=== PATIENT | female | born 1965 ===

== ENCOUNTER 2016-10-17 10:47 | Day surgery (SDC) | payer OTHER ==
[2016-10-17] MEDS ORDERED: Lactated Ringer's 500 ML IV ONE (11:42)
[2016-10-17 11:46] VITALS: TEMP 97.8
[2016-10-17 12:31] VITALS: O2SAT 99
[2016-10-17 12:51] VITALS: BP 104/72
[2016-10-17 12:52] VITALS: PULSE 64; RESP 13
== END 2016-10-17 13:02 | disposition home or self-care (01) ==
LOC: C.ENDO 10:47
PROVIDERS: ATTEND Internal Medicine Gastroenterology
DX: K29.50 Unspecified chronic gastritis without bleeding (principal)
CPT/HCPCS: 43239; 88305; J7120

== ENCOUNTER 2016-11-30 10:57 | Inpatient (IN) | payer OTHER ==
[2016-11-30] MEDS ORDERED: Sodium Chloride 0.9% 1,000 ML IV ONE ×3 (11:17→14:04)
[2016-11-30] MEDS ORDERED: Sodium Chloride 0.9% 1,000 ML ONE ×3 (11:25→14:12)
[2016-11-30 11:30] LABS: BASO % 0.5 % (0.0-2.0); EOS # 0.1 K/uL (0.0-0.7); EOS % 1.2 % (0.0-4.0); HEMATOCRIT 33.9 % (34.0-47.0); LYMPH # 0.9 K/uL (1.0-4.3); LYMPH % 9.8 % (20.0-40.0); MEAN CELL VOLUME 96.7 fL (81.0-99.0); MEAN CORPUSCULAR HEMOGLOBIN 33.9 pg (27.0-31.0); MEAN PLATELET VOLUME 6.8 fL (7.2-11.7); MONO # 0.6 K/uL (0.0-0.8); MONO % 6.2 % (0.0-10.0); PLATELET COUNT 254 K/uL (130-400); RED CELL DISTRIBUTION WIDTH 12.8 % (11.5-14.5); WHITE BLOOD COUNT 9.1 K/uL (4.8-10.8)
[2016-11-30 11:36] LABS: POTASSIUM 3.7 mmol/L (3.6-5.2)
--- NOTE | 2016-11-30 11:37 | C.PDOC ---
History Of Present Illness 51 y/o female, with PMHx of HTN and hypercholesterolemia, presents to ED with complaints of nausea, vomiting, and diarrhea for 3 days. Patient reports multiple episodes of vomiting and diarrhea over the last few days. Notes she follows up at the clinic with Dr. Luciano. Otherwise, denies fever, chills, chest pain, SOB, urinary symptoms, or other associated symptoms. Time Seen by Provider: 11/30/16 11:11 Chief Complaint (Nursing): Abdominal Pain History Per: Patient History/Exam Limitations: no limitations Onset/Duration Of Symptoms: Days Current Symptoms Are (Timing): Still Present Location Of Pain/Discomfort: Diffuse Quality Of Discomfort: "Pain" Associated Symptoms: Nausea, Vomiting, Diarrhea. denies: Fever, Chills, Back Pain, Chest Pain, Urinary Symptoms Recent travel outside of the [place]: No Past Medical History Reviewed: Historical Data, Nursing Documentation, Vital Signs Vital Signs: Last Vital Signs Temp 98.5 F 11/30/16 16:42 Pulse 86 11/30/16 16:42 Resp 20 11/30/16 16:42 BP 114/76 11/30/16 16:42 Pulse Ox 97 11/30/16 16:42 - Medical History PMH: Anxiety, Asthma, Depression, Diabetes, HTN, Hypercholesterolemia - [facility] Procedures CLOSURE SKIN & SUBCUTANEOUS NEC (12/13/13) CRUCIATE LIG REPAIR NEC (07/18/13) ENDOSCOPIC BIOPSY OF RECTUM (05/15/13) EXCIS KNEE SEMILUN CARTL (07/18/13) KNEE SYNOVECTOMY (07/18/13) Family History: States: Stroke - Social History Hx Tobacco Use: Yes Hx Alcohol Use: Yes Hx Substance Use: No - Immunization History Hx Tetanus Toxoid Vaccination: Yes (YESTERDAY) Hx Influenza Vaccination: No Hx Pneumococcal Vaccination: No Review Of Systems Except As Marked, All Systems Reviewed And Found Negative. Constitutional: Negative for: Fever, Chills Cardiovascular: Negative for: Chest Pain Respiratory: Negative for: Cough, Wheezing Gastrointestinal: Positive for: Nausea, Vomiting, Abdominal Pain, Diarrhea. Negative for: Constipation Genitourinary: Negative for: Dysuria, Hematuria Skin: Negative for: Rash Neurological: Negative for: Headache, Dizziness Physical Exam - Physical Exam Appears: Non-toxic, No Acute Distress Skin: Normal Color, Warm, Dry Head: Atraumatic, Normacephalic Oral Mucosa: Dry Chest: Symmetrical Cardiovascular: Rhythm Regular Respiratory: Normal Breath Sounds, No Rales, No Rhonchi, No Wheezing Gastrointestinal/Abdominal: Soft, Tenderness (diffuse), No Guarding, No Rebound Back: Normal Inspection, No CVA Tenderness Extremity: Normal ROM, Capillary Refill (< 2 sec. ) Neurological/Psych: Oriented x3, Normal Speech, Normal Cognition ED Course And Treatment - Laboratory Results Result Diagrams: 11/30/16 11:24 11/30/16 11:24 Lab Interpretation: Abnormal O2 Sat by Pulse Oximetry: 98 (RA) Pulse Ox Interpretation: Normal - CT Scan/US No standard instances Other Rad Studies (CT/US): Read By Radiologist, Radiology Report Reviewed CT/US Interpretation: FINDINGS: There is limited evaluation of the solid organs without the administration of IV contrast. LOWER THORAX: No visible consolidation, pleural effusion, or pneumothorax. LIVER: Mild hepatomegaly. GALLBLADDER AND BILE DUCTS: Unremarkable unenhanced appearance. PANCREAS: Unremarkable unenhanced appearance. SPLEEN: Unremarkable unenhanced appearance. ADRENALS: Unremarkable unenhanced appearance. KIDNEYS AND URETERS : No hydronephrosis or obstructing renal calculus. BLADDER: The urinary bladder appears unremarkable. REPRODUCTIVE: Uterus is absent, presumably due to hysterectomy. APPENDIX: No secondary signs of acute appendicitis. BOWEL: The stomach is nondistended. Lack of oral contrast limits evaluation for bowel pathology. The bowel loops appear within normal limits of caliber without evidence of intestinal obstruction. Colonic wall thickening involving the transverse and left colon; correlate clinically for colitis (i.e. E infectious, inflammatory, ischemic). PERITONEUM: No significant free fluid. No definite free air. LYMPH NODES: No bulky lymphadenopathy identified. VASCULATURE: No aortic aneurysm. BONES: Degenerative changes. OTHER FINDINGS: Small umbilical fat containing hernia. Right inguinal fat containing hernia. IMPRESSION: Colonic wall thickening involving the transverse and left colon; correlate clinically for colitis (i.e. E infectious, inflammatory, ischemic). Additional findings as above. Progress Note: Zofran, IVFs given. Labs, non-contrast CT scan ordered. Treated with additional NSS and morphine 4 mg IV. 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 - Scribe Statement The provider has reviewed the documentation as recorded by the Scribe Justin Simmons All medical record entries made by the Scribe were at my direction and personally dictated by me. I have reviewed the chart and agree that the record accurately reflects my personal performance of the history, physical exam, medical decision making, and the department course for this patient. I have also personally directed, reviewed, and agree with the discharge instructions and disposition. Decision To Admit - Pt Status Changed To: Hospital Disposition Of: Inpatient - Admit Certification Admit to Inpatient:: After my assessment, the patient will require hospitalization for at least two midnights. This is because of the severity of symptoms shown, intensity of services needed, and/or the medical risk in this patient being treated as an outpatient. - InPatient: Physician Admission Certification:: Abdominal Pain. Colitis - . Bed Request Type: Regular Admitting Physician: Gama Gamboa Patient Diagnosis: Abdominal pain, Diarrhea, Colitis
[2016-11-30 11:38] LABS: BILIRUBIN,TOTAL 0.9 mg/dL (0.2-1.3)
[2016-11-30 11:39] LABS: ALB/GLOB RATIO 1.1 (1.0-2.1); CALCIUM 8.9 mg/dl (8.6-10.4); TOTAL PROTEIN 7.5 g/dL (6.3-8.3)
[2016-11-30 11:56] LABS: EOSINOPHIL 1 % (0-4); NEUTROPHIL 51 % (50-75); REACTIVE LYMPHOCYTES 1 % (0-0); TOTAL CELLS COUNTED 100
[2016-11-30 12:26] LABS: RBC URINE 2 /hpf (0-3); URINE BILIRUBIN NEGATIVE (NEGATIVE); URINE BLOOD NEGATIVE (NEGATIVE); URINE COLOR Amber (YELLOW); URINE GLUCOSE (UA) NORMAL (Normal); URINE KETONE NEGATIVE (NEGATIVE); URINE LEUKOCYTE ESTERASE NEG Leu/uL (Negative); URINE PROTEIN 2+ mg/dL (NEGATIVE); URINE UROBILINOGEN NORMAL mg/dL (0.2-1.0); WBC URINE 9 /hpf (0-5)
--- NOTE | 2016-11-30 13:53 | CT ---
PROCEDURE: CT Abdomen and Pelvis without Oral or IV contrast. HISTORY: Pain COMPARISON: Abdominal ultrasound performed 10/12/16, CT abdomen and pelvis with contrast performed 09/01/16 TECHNIQUE: Contiguous axial images of the abdomen and pelvis. No oral or IV contrast administered. Coronal and Sagittal reformats generated and reviewed. Radiation dose: Total exam DLP = 582.87 mGy-cm. This CT exam was performed using one or more of the following dose reduction techniques: Automated exposure control, adjustment of the mA and/or kV according to patient size, and/or use of iterative reconstruction technique. FINDINGS: There is limited evaluation of the solid organs without the administration of IV contrast. LOWER THORAX: No visible consolidation, pleural effusion, or pneumothorax. LIVER: Mild hepatomegaly. GALLBLADDER AND BILE DUCTS: Unremarkable unenhanced appearance. PANCREAS: Unremarkable unenhanced appearance. SPLEEN: Unremarkable unenhanced appearance. ADRENALS: Unremarkable unenhanced appearance. KIDNEYS AND URETERS: No hydronephrosis or obstructing renal calculus. BLADDER: The urinary bladder appears unremarkable. REPRODUCTIVE: Uterus is absent, presumably due to hysterectomy. APPENDIX: No secondary signs of acute appendicitis. BOWEL: The stomach is nondistended. Lack of oral contrast limits evaluation for bowel pathology. The bowel loops appear within normal limits of caliber without evidence of intestinal obstruction. Colonic wall thickening involving the transverse and left colon; correlate clinically for colitis (i.e. E infectious, inflammatory, ischemic). PERITONEUM: No significant free fluid. No definite free air. LYMPH NODES: No bulky lymphadenopathy identified. VASCULATURE: No aortic aneurysm. BONES: Degenerative changes. OTHER FINDINGS: Small umbilical fat containing hernia. Right inguinal fat containing hernia. IMPRESSION: Colonic wall thickening involving the transverse and left colon; correlate clinically for colitis (i.e. E infectious, inflammatory, ischemic). Additional findings as above.
[2016-11-30] MEDS ORDERED: Morphine 4 MG/ML VIAL ONE (14:12)
[2016-11-30] MEDS ORDERED: metroNIDAZOLE IV 500 mg/100 ml 500 MG/100 ML BAG ONE (15:23)
[2016-11-30] MEDS: metroNIDAZOLE IV 500 mg/100 ml 500 MG/100 ML BAG IVPB SCH ×2 (15:24→21:47)
--- NOTE | 2016-11-30 15:27 | CP.PCM.HP ---
<Raymon Mary - Last Filed: 11/30/16 15:23> History of Present Illness - History of Present Illness History of Present Illness: This is a 51 yo female with past medical hx of HTN and HLD and gastritis presenting with abd pain x 2 days. Started gradually 2 days ago after eating BBQ ribs and milk on . Never happened before. No sick contacts, recent travel to . Pain diffuse, squeezing sensation. Getting worse , 10/10. No vomiting, positive nausea. Reports "a lot" of diarrhea, non bloody. Pt is not menstruating any more. Reported fever of 102.7 yesterday. Took Gasx at home with no relief. PMH: HTN, HLD, gastritis PSH: hysterectomy, bunionectomy, knee sx, tubal ligation Allergies: NKDA Current home meds- lisinopril, HCTZ, norvasc, pepcid, gemfibrozil, simvastatin FH: Throat cancer, testicular, stomach, colon cancer all in family Social hx: Current smoker, 6-7 cigs/day. Social drinker, denies drug use. Present on Admission - Present on Admission Any Indicators Present on Admission: No History of DVT/PE: No History of Uncontrolled Diabetes: No Urinary Catheter: No Decubitus Ulcer Present: No Review of Systems - Review of Systems All systems: reviewed and no additional remarkable complaints except Review of Systems: Negative except for HPI. Past Patient History - Infectious Disease Hx of Infectious Diseases: None - Tetanus Immunizations Tetanus Immunization: Unknown - Past Medical History & Family History Past Medical History?: Yes Pertinent Family History: Throat, stomach, colon, testicular cancer - Past Social History Smoking Status: Light Smoker < 10 Cigarettes Daily Chewing Tobacco Use: No Cigar Use: No Alcohol: Social Drugs: Denies Home Situation {Lives}: With Family Domestic Violence: Negative - CARDIAC Hx Hypercholesterolemia: Yes Hx Hypertension: Yes - PULMONARY Hx Asthma: Yes - NEUROLOGICAL Hx Neurological Disorder: No - HEENT Hx HEENT Problems: Yes Other/Comment: SEASONAL ALLERGIES - RENAL Hx Chronic Kidney Disease: No - ENDOCRINE/METABOLIC Hx Endocrine Disorders: No - HEMATOLOGICAL/ONCOLOGICAL Hx Blood Disorders: No - INTEGUMENTARY Hx Dermatological Problems: No - MUSCULOSKELETAL/RHEUMATOLOGICAL Hx Musculoskeletal Disorders: Yes Hx Falls: No Hx Herniated Disk: Yes Other/Comment: TORN LT KNEE LIGAMENTS ACL & MCL - GASTROINTESTINAL Hx Gastrointestinal Disorders: Yes Hx Gastroesophageal Reflux: Yes - GENITOURINARY/GYNECOLOGICAL Hx Genitourinary Disorders: Yes Other/Comment: FIBROID UTERUS - PSYCHIATRIC Hx Anxiety: Yes Hx Depression: Yes Hx Substance Use: No - SURGICAL HISTORY Hx Surgeries: Yes Hx Arthroscopy: (KNEE ARTHROSCOPY WITH ACL & MCL REPAIR) Hx Hysterectomy: Yes Hx Orthopedic Surgery: Yes Other/Comment: BUNIONECTOMY, LT KNEE LIGAMENT REPLACED BY HUMAN CADAVER, ARTIFICIAL DISC C4 - ANESTHESIA Hx Anesthesia: Yes Hx Anesthesia Reactions: No Hx Malignant Hyperthermia: No Meds Allergies/Adverse Reactions: Allergies Allergy/AdvReac Type Severity Reaction Status Date / Time seasonal Allergy CONGESTION Uncoded 11/30/16 11:12 Physical Exam - Constitutional Appears: In Acute Distress - Head Exam Head Exam: ATRAUMATIC, NORMAL INSPECTION, NORMOCEPHALIC - Eye Exam Eye Exam: EOMI - ENT Exam ENT Exam: Mucous Membranes Dry - Neck Exam Neck exam: Positive for: Full Rom, Normal Inspection - Respiratory Exam Respiratory Exam: NORMAL BREATHING PATTERN. absent: Respiratory Distress - Cardiovascular Exam Cardiovascular Exam: +S1, +S2 - GI/Abdominal Exam GI & Abdominal Exam: Normal Bowel Sounds, Soft, Tenderness. absent: Guarding Additional comments: Moderate tenderness all 4 quadrants - Extremities Exam Extremities exam: Positive for: full ROM, normal inspection - Back Exam Back exam: NORMAL INSPECTION - Neurological Exam Neurological exam: Alert, CN II-XII Intact, Oriented x3 - Psychiatric Exam Psychiatric exam: Anxious, Normal Affect, Normal Mood - Skin Skin Exam: Dry, Intact, Normal Color, Warm Results - Vital Signs Recent Vital Signs: Last Vital Signs Temp 98.2 F 11/30/16 11:01 Pulse 114 H 11/30/16 11:01 Resp 18 11/30/16 11:01 BP 109/72 11/30/16 11:01 Pulse Ox 98 11/30/16 14:29 - Labs Result Diagrams: 11/30/16 11:24 11/30/16 11:24 Assessment & Plan - Assessment and Plan (Free Text) Assessment: This is a 51 yo female with past medical hx of HTN, HLD, gastritis presenting with abd pain x 2 days 1. Colitis -IVF 100 cc/hr -morphine IV PRN pain -NPO -cipro IV -flagyl IV -stool WBCs -stool c diff -stool culture -ova/parasites -stool electrolytes -blood cultures x 2 -zofran for nausea -will repeat ua 2. Hx of HTN -continue home lisinopril -hold hctz, norvasc 3. hx of HLD -will start crestor 5 mg PO HS 4. GI/DVT ppx -protonix 40 daily -SCDs discussed with Dr. Gamboa <Gama Gamboa - Last Filed: 12/01/16 07:57> Results - Vital Signs Recent Vital Signs: Last Vital Signs Temp 98.1 F 12/01/16 07:33 Pulse 77 12/01/16 07:33 Resp 20 12/01/16 07:33 BP 105/69 12/01/16 07:33 Pulse Ox 97 12/01/16 07:33 - Labs Result Diagrams: 12/01/16 07:15 12/01/16 07:15 Labs: Laboratory Results - last 24 hr 11/30/16 11/30/16 11/30/16 16:20 21:25 Unknown WBC RBC Hgb Hct MCV MCH MCHC RDW Plt Count MPV Neut % (Auto) Lymph % (Auto) [place] % (Auto) Eos % (Auto) Baso % (Auto) Neut # Lymph # [place] # Eos # Baso # Sodium Potassium Chloride Carbon Dioxide Anion Gap BUN Creatinine Est GFR ( Amer) Est GFR (Non-Af Amer) POC Glucose (mg/dL) 101 97 Random Glucose Calcium Phosphorus Magnesium Total Bilirubin AST ALT Alkaline Phosphatase Total Protein Albumin Globulin Albumin/Globulin Ratio Stool Leukocytes, Qual C. difficile Ag & Toxin Negative 11/30/16 12/01/16 12/01/16 Unknown 07:15 07:15 WBC 4.4 L D RBC 2.80 L Hgb 9.5 L D Hct 27.1 L MCV 96.6 MCH 34.0 H MCHC 35.2 RDW 12.8 Plt Count 204 MPV 6.9 L Neut % (Auto) 61.0 Lymph % (Auto) 21.1 [place] % (Auto) 12.5 H Eos % (Auto) 4.7 H Baso % (Auto) 0.7 Neut # 2.7 Lymph # 0.9 L [place] # 0.5 Eos # 0.2 Baso # 0.0 Sodium 136 Potassium 3.6 Chloride 103 Carbon Dioxide 24 Anion Gap 13 BUN 13 Creatinine 0.9 Est GFR ( Amer) > 60 Est GFR (Non-Af Amer) > 60 POC Glucose (mg/dL) Random Glucose 82 Calcium 8.1 L Phosphorus 3.5 Magnesium 1.4 L Total Bilirubin 0.7 AST 27 ALT 20 Alkaline Phosphatase 58 Total Protein 6.0 L Albumin 3.0 L D Globulin 3.0 Albumin/Globulin Ratio 1.0 Stool Leukocytes, Qual Positive H C. difficile Ag & Toxin Attending/Attestation - Attestation I have personally seen and examined this patient.: Yes I have fully participated in the care of the patient.: Yes I have reviewed all pertinent clinical information: Yes Notes (Text): 12/01/16 07:53 Medical attending: Patient was seen and examined by me, agrees the above note by bio medical technician. The patient had completed CT imaging which suggested that she may have colitis. She explains that she recently felt sick after eating a meal on . She tells us that she's been having a lot of vomiting and diarrhea, also we reviewed some old notes she did have the EGD just recently the pathology reports are negative for any acute findings. At this time to start IV Cipro and IV Flagyl as well as intravenous fluids the patient will be nothing by mouth for the time being will see how she still tomorrow if we can advance her diet to clear liquid diet. [place] check additional cultures such as blood, stools, O&P, C. difficile however this appears to be unlikely as she hasn't taken any biotics before Thank you very much, Gama Gamboa
[2016-11-30 16:43] VITALS: RESP 20
[2016-11-30] MEDS: Sodium Chloride 0.9% 1,000 ML IV SCH (16:50)
[2016-11-30] MEDS: Ciprofloxacin 400mg/200ml D5W 400 MG/200 ML BAG IVPB SCH (17:31)
[2016-12-01] MEDS: Sodium Chloride 0.9% 1,000 ML IV SCH ×4 (01:30→21:57)
[2016-12-01] MEDS: Ciprofloxacin 400mg/200ml D5W 400 MG/200 ML BAG IVPB SCH ×2 (03:10→15:24)
[2016-12-01] MEDS: metroNIDAZOLE IV 500 mg/100 ml 500 MG/100 ML BAG IVPB SCH ×3 (05:30→21:57)
[2016-12-01 07:32] LABS: BASO % 0.7 % (0.0-2.0); EOS # 0.2 K/uL (0.0-0.7); EOS % 4.7 % (0.0-4.0); HEMATOCRIT 27.1 % (34.0-47.0); LYMPH # 0.9 K/uL (1.0-4.3); LYMPH % 21.1 % (20.0-40.0); MEAN CELL VOLUME 96.6 fL (81.0-99.0); MEAN CORPUSCULAR HGB CONC 35.2 g/dL (33.0-37.0); MEAN PLATELET VOLUME 6.9 fL (7.2-11.7); MONO # 0.5 K/uL (0.0-0.8); MONO % 12.5 % (0.0-10.0); RED CELL DISTRIBUTION WIDTH 12.8 % (11.5-14.5)
[2016-12-01 07:35] LABS: CHLORIDE 103 mmol/L (98-107)
[2016-12-01 07:36] LABS: POTASSIUM 3.6 mmol/L (3.6-5.2); SODIUM 136 mmol/L (132-148)
[2016-12-01 07:38] LABS: ALKALINE PHOSPHATASE 58 U/L (38-126); ALT/SGPT 20 U/L (9-52); AST/SGOT 27 U/L (14-36); BILIRUBIN,TOTAL 0.7 mg/dL (0.2-1.3); BLOOD UREA NITROGEN 13 mg/dL (7-17); CARBON DIOXIDE 24 mmol/L (22-30); GFR AFRICAN-AMERICAN > 60; GLUCOSE,RANDOM 82 mg/dL (65-105)
[2016-12-01 07:39] LABS: CALCIUM 8.1 mg/dl (8.6-10.4); MAGNESIUM 1.4 mg/dL (1.6-2.3); PHOSPHOROUS 3.5 mg/dL (2.5-4.5)
[2016-12-01 07:47] LABS: WHITE BLOOD COUNT 4.4 K/uL (4.8-10.8)
[2016-12-01] MEDS: Magnesium Sulfate 1 gm in D5W 1 GM/100 ML BAG IVPB SCH ×2 (11:01→12:19)
--- NOTE | 2016-12-01 11:37 | CP.PCM.PN ---
<Raymon Mary - Last Filed: 12/01/16 11:37> Subjective - Date & Time of Evaluation Date of Evaluation: 12/01/16 Time of Evaluation: 11:35 - Subjective Subjective: Med progress note. Attending: Dr. Gamboa Pt seen and examined at bedside. No acute distress, but pt is in some pain. No events overnight. Pt still having a good amt of diarrhea, non bloody. Sx consult pending. Denies fevers, chills, vomiting, cp, sob. Objective - Vital Signs/Intake and Output Vital Signs (last 24 hours): Temp Pulse Resp BP Pulse Ox 98.1 F 77 20 105/69 97 12/01/16 07:33 12/01/16 07:33 12/01/16 07:33 12/01/16 07:33 12/01/16 07:33 Intake and Output: 12/01/16 12/01/16 06:59 18:59 Intake Total 1620 Balance 1620 - Medications Medications: Current Medications Enoxaparin Sodium (Lovenox) 40 mg SC [facility]ILY [facility] Gemfibrozil (Lopid) 600 mg PO BIDBS [facility] Last Admin: 12/01/16 08:30 Dose: 600 mg Hydromorphone HCl (Dilaudid) 1 mg IVP Q4H PRN PRN Reason: Pain, severe (8-10) Ciprofloxacin (Cipro 400mg/200ml Dsw) 400 mg in 200 mls @ 133 mls/hr IVPB Q12H [facility] Last Admin: 12/01/16 03:10 Dose: 133 mls/hr Metronidazole (Flagyl) 500 mg in 100 mls @ 100 mls/hr IVPB Q8 [facility] Last Admin: 12/01/16 05:30 Dose: 100 mls/hr Sodium Chloride (Sodium Chloride 0.9%) 1,000 mls @ 100 mls/hr IV .Q10H [facility] Last Admin: 12/01/16 08:29 Dose: 100 mls/hr Magnesium Sulfate/Dextrose (Magnesium Sulfate 1 Gm/100 Ml D5w) 1 gm in 100 mls @ 100 mls/hr IVPB Q1H [facility] Stop: 12/01/16 11:59 Last Admin: 12/01/16 11:01 Dose: 100 mls/hr Lisinopril (Zestril) 40 mg PO DAILY [facility] Last Admin: 12/01/16 11:06 Dose: Not Given Morphine Sulfate (Morphine) 2 mg IVP Q4 PRN PRN Reason: Pain, moderate (4-7) Last Admin: 12/01/16 08:34 Dose: 2 mg Ondansetron HCl (Zofran Inj) 4 mg IVP Q6 PRN PRN Reason: NAUSEA/VOMITING Pantoprazole Sodium (Protonix Inj) 40 mg IVP DAILY [facility] Last Admin: 12/01/16 11:04 Dose: 40 mg Pneumococcal Polyvalent Vaccine (Pneumovax 23 Vaccine) 0.5 ml IM .ONCE ONE Stop: 12/02/16 10:01 Rosuvastatin Calcium (Crestor) 5 mg PO HS [facility] Last Admin: 11/30/16 21:49 Dose: Not Given - Labs Labs: 12/01/16 07:15 12/01/16 07:15 - Constitutional Appears: Non-toxic, No Acute Distress - Head Exam Head Exam: ATRAUMATIC, NORMAL INSPECTION, NORMOCEPHALIC - Eye Exam Eye Exam: EOMI - ENT Exam ENT Exam: Mucous Membranes Moist - Neck Exam Neck Exam: Full ROM, Normal Inspection - Respiratory Exam Respiratory Exam: NORMAL BREATHING PATTERN. absent: Respiratory Distress - Cardiovascular Exam Cardiovascular Exam: +S1, +S2 - GI/Abdominal Exam GI & Abdominal Exam: Tenderness, Normal Bowel Sounds, Rebound. absent: Distended Additional comments: Diffuse tenderness - Extremities Exam Extremities Exam: Full ROM, Normal Inspection - Neurological Exam Neurological Exam: Alert, Awake, CN II-XII Intact, Oriented x3 - Psychiatric Exam Psychiatric exam: Normal Affect, Normal Mood - Skin Skin Exam: Dry, Intact, Normal Color, Warm Assessment and Plan - Assessment and Plan (Free Text) Assessment: This is a 51 yo female with past medical hx of HTN, HLD, gastritis presenting with abd pain x 2 days 1. Colitis -IVF 100 cc/hr -morphine IV PRN pain>> will add dilaudid 1 mg iv q 4 prn severe pain -NPO -cipro IV 400 q 12 -flagyl IV 500 q8 -stool WBCs positive -stool c diff pending -stool culture pending -ova/parasites pending -stool electrolytes pending -blood cultures x 2 pending -zofran for nausea -will repeat ua -sx consult. Dr. Francis. recs appreciated. 2. Hx of HTN -continue home lisinopril>>> will place on hold for low bp -hold hctz, norvasc 3. hx of HLD -will start crestor 5 mg PO HS 4. GI/DVT ppx -protonix 40 daily -SCDs discussed with Dr. Gamboa <Gama Gamboa - Last Filed: 12/02/16 07:41> Objective - Vital Signs/Intake and Output Vital Signs (last 24 hours): Temp Pulse Resp BP Pulse Ox 98.1 F 69 20 117/79 97 12/02/16 07:34 12/02/16 07:34 12/02/16 07:34 12/02/16 07:34 12/02/16 07:34 Intake and Output: 12/02/16 12/02/16 06:59 18:59 Intake Total 1550 Balance 1550 - Medications Medications: Current Medications Enoxaparin Sodium (Lovenox) 40 mg SC DAILY [facility] Last Admin: 12/01/16 12:45 Dose: 40 mg Gemfibrozil (Lopid) 600 mg PO BIDBS [facility] Last Admin: 12/01/16 16:39 Dose: 600 mg Hydromorphone HCl (Dilaudid) 1 mg IVP Q4H PRN PRN Reason: Pain, severe (8-10) Last Admin: 12/01/16 21:58 Dose: 1 mg Ciprofloxacin (Cipro 400mg/200ml Dsw) 400 mg in 200 mls @ 133 mls/hr IVPB Q12H [facility] Last Admin: 12/02/16 02:12 Dose: 133 mls/hr Metronidazole (Flagyl) 500 mg in 100 mls @ 100 mls/hr IVPB Q8 [facility] Last Admin: 12/02/16 05:30 Dose: 100 mls/hr Lisinopril (Zestril) 40 mg PO DAILY [facility] Last Admin: 12/01/16 11:06 Dose: Not Given Morphine Sulfate (Morphine) 2 mg IVP Q4 PRN PRN Reason: Pain, moderate (4-7) Last Admin: 12/01/16 08:34 Dose: 2 mg Ondansetron HCl (Zofran Inj) 4 mg IVP Q6 PRN PRN Reason: NAUSEA/VOMITING Pantoprazole Sodium (Protonix Inj) 40 mg IVP DAILY [facility] Last Admin: 12/01/16 11:04 Dose: 40 mg Pneumococcal Polyvalent Vaccine (Pneumovax 23 Vaccine) 0.5 ml IM .ONCE ONE Stop: 12/02/16 10:01 Rosuvastatin Calcium (Crestor) 5 mg PO HS [facility] Last Admin: 12/01/16 21:58 Dose: 5 mg - Labs Labs: 12/01/16 07:15 12/01/16 07:15 Attending/Attestation - Attestation I have personally seen and examined this patient.: Yes I have fully participated in the care of the patient.: Yes I have reviewed all pertinent clinical information, including history, physical exam and plan: Yes Notes (Text): 12/02/16 07:40 Medical attending: Patient was seen and examined by me, agrees the above note by medical radiation tech. The patient was reporting that she still has quite a bit of abdominal pain. The lab work is mostly unchanged from before. On exam she still has a lot of tenderness on the abdomen. Will get a surgical evaluation, also written a change her pain medication as well So at this time were still pending on stool cultures, blood cultures. She tells us that the diarrhea has lessened in frequency. She is currently on day 2 of Cipro and Flagyl Thank you very much, Gama Gamboa
--- NOTE | 2016-12-01 11:57 | CP.PCM.CON ---
History of Present Illness - History of Present Illness History of Present Illness: SURGERY CONSULT NOTE FOR DR. SALINAS 51F presents with abdominal pain that began on Monday. Patient states the pain began hours after eating spoiled milk and foold left over from the previous day barbeque. Patient states the pain was diffuse and intense in nature. She states she immediately began having diarrhea and vomiting moments after the pain intensified. She states she was vomiting for two days (Monday and Monday) and had her last bout of diarrhea this morning. Vomitus included food she ate and saliva. Diarrhea was non-bloody. She states she has had abdominal pain before but nothing like this. Patient had a routine colonoscopy few years ago and upper endoscopy last mouth for her gastritis. She had admits to fevers of 102 when the illness began. Also admits to previous sweats. Pain has improved but it still there, patient just received her pain medication which helps. PMH: HTN, HLD, Gastritis PSH: Hysterectomy, Buineonectomy, Knee surgery, sebaceous cyst removal, tubal ligation Social: current smoker, social alcohol, denies illicit drugs fh: throat, testicular, stomach CA in family Allergies: NKDAA Past Patient History - Infectious Disease Hx of Infectious Diseases: None - Tetanus Immunizations Tetanus Immunization: Unknown - Past Medical History & Family History Past Medical History?: Yes - Past Social History Smoking Status: Light Smoker < 10 Cigarettes Daily - CARDIAC Hx Hypercholesterolemia: Yes Hx Hypertension: Yes - PULMONARY Hx Asthma: Yes - NEUROLOGICAL Hx Neurological Disorder: No - HEENT Hx HEENT Problems: Yes Other/Comment: SEASONAL ALLERGIES - RENAL Hx Chronic Kidney Disease: No - ENDOCRINE/METABOLIC Hx Endocrine Disorders: No - HEMATOLOGICAL/ONCOLOGICAL Hx Blood Disorders: No - INTEGUMENTARY Hx Dermatological Problems: No - MUSCULOSKELETAL/RHEUMATOLOGICAL Hx Musculoskeletal Disorders: Yes Hx Falls: No Hx Herniated Disk: Yes Other/Comment: TORN LT KNEE LIGAMENTS ACL & MCL - GASTROINTESTINAL Hx Gastrointestinal Disorders: Yes Hx Gastroesophageal Reflux: Yes - GENITOURINARY/GYNECOLOGICAL Hx Genitourinary Disorders: Yes Other/Comment: FIBROID UTERUS - PSYCHIATRIC Hx Anxiety: Yes Hx Depression: Yes Hx Substance Use: No - SURGICAL HISTORY Hx Surgeries: Yes Hx Arthroscopy: (KNEE ARTHROSCOPY WITH ACL & MCL REPAIR) Hx Hysterectomy: Yes (October 2009) Hx Orthopedic Surgery: Yes Other/Comment: BUNIONECTOMY, LT KNEE LIGAMENT REPLACED BY HUMAN CADAVER, ARTIFICIAL DISC C4 - ANESTHESIA Hx Anesthesia: Yes Hx Anesthesia Reactions: No Hx Malignant Hyperthermia: No Meds Allergies/Adverse Reactions: Allergies Allergy/AdvReac Type Severity Reaction Status Date / Time seasonal Allergy CONGESTION Uncoded 11/30/16 11:12 - Medications Medications: Current Medications Enoxaparin Sodium (Lovenox) 40 mg SC DAILY [facility] Gemfibrozil (Lopid) 600 mg PO BIDBS [facility] Last Admin: 12/01/16 08:30 Dose: 600 mg Hydromorphone HCl (Dilaudid) 1 mg IVP Q4H PRN PRN Reason: Pain, severe (8-10) Ciprofloxacin (Cipro 400mg/200ml Dsw) 400 mg in 200 mls @ 133 mls/hr IVPB Q12H [facility] Last Admin: 12/01/16 03:10 Dose: 133 mls/hr Metronidazole (Flagyl) 500 mg in 100 mls @ 100 mls/hr IVPB Q8 [facility] Last Admin: 12/01/16 05:30 Dose: 100 mls/hr Sodium Chloride (Sodium Chloride 0.9%) 1,000 mls @ 100 mls/hr IV .Q10H [facility] Last Admin: 12/01/16 08:29 Dose: 100 mls/hr Magnesium Sulfate/Dextrose (Magnesium Sulfate 1 Gm/100 Ml D5w) 1 gm in 100 mls @ 100 mls/hr IVPB Q1H [facility] Stop: 12/01/16 11:59 Last Admin: 12/01/16 11:01 Dose: 100 mls/hr Lisinopril (Zestril) 40 mg PO DAILY [facility] Last Admin: 12/01/16 11:06 Dose: Not Given Morphine Sulfate (Morphine) 2 mg IVP Q4 PRN PRN Reason: Pain, moderate (4-7) Last Admin: 12/01/16 08:34 Dose: 2 mg Ondansetron HCl (Zofran Inj) 4 mg IVP Q6 PRN PRN Reason: NAUSEA/VOMITING Pantoprazole Sodium (Protonix Inj) 40 mg IVP DAILY [facility] Last Admin: 12/01/16 11:04 Dose: 40 mg Pneumococcal Polyvalent Vaccine (Pneumovax 23 Vaccine) 0.5 ml IM .ONCE ONE Stop: 12/02/16 10:01 Rosuvastatin Calcium (Crestor) 5 mg PO HS [facility] Last Admin: 11/30/16 21:49 Dose: Not Given Physical Exam - Constitutional Appears: Non-toxic, No Acute Distress - Head Exam Head Exam: ATRAUMATIC - Eye Exam Eye Exam: EOMI, PERRL - ENT Exam ENT Exam: Mucous Membranes Moist - Respiratory Exam Respiratory Exam: Clear to Auscultation Bilateral, NORMAL BREATHING PATTERN - Cardiovascular Exam Cardiovascular Exam: REGULAR RHYTHM, +S1, +S2 - GI/Abdominal Exam GI & Abdominal Exam: Soft, Tenderness (greatest in LLQ). absent: Distended, Firm, Guarding, Rebound, Rigid - Extremities Exam Extremities exam: Negative for: pedal edema, tenderness - Neurological Exam Neurological exam: Alert, Oriented x3 - Psychiatric Exam Psychiatric exam: Normal Affect, Normal Mood - Skin Skin Exam: Dry, Intact, Normal Color, Warm Results - Vital Signs Recent Vital Signs: Last Vital Signs Temp 98.1 F 12/01/16 07:33 Pulse 77 12/01/16 07:33 Resp 20 12/01/16 07:33 BP 105/69 12/01/16 07:33 Pulse Ox 97 12/01/16 07:33 - Labs Result Diagrams: 12/01/16 07:15 12/01/16 07:15 Labs: Laboratory Results - last 24 hr 11/30/16 11/30/16 11/30/16 16:20 21:25 Unknown WBC RBC Hgb Hct MCV MCH MCHC RDW Plt Count MPV Neut % (Auto) Lymph % (Auto) Upson % (Auto) Eos % (Auto) Baso % (Auto) Neut # Lymph # Upson # Eos # Baso # Sodium Potassium Chloride Carbon Dioxide Anion Gap BUN Creatinine Est GFR ( Amer) Est GFR (Non-Af Amer) POC Glucose (mg/dL) 101 97 Random Glucose Calcium Phosphorus Magnesium Total Bilirubin AST ALT Alkaline Phosphatase Total Protein Albumin Globulin Albumin/Globulin Ratio Stool Leukocytes, Qual C. difficile Ag & Toxin Negative 11/30/16 12/01/16 12/01/16 Unknown 07:15 07:15 WBC 4.4 L D RBC 2.80 L Hgb 9.5 L D Hct 27.1 L MCV 96.6 MCH 34.0 H MCHC 35.2 RDW 12.8 Plt Count 204 MPV 6.9 L Neut % (Auto) 61.0 Lymph % (Auto) 21.1 Upson % (Auto) 12.5 H Eos % (Auto) 4.7 H Baso % (Auto) 0.7 Neut # 2.7 Lymph # 0.9 L Upson # 0.5 Eos # 0.2 Baso # 0.0 Sodium 136 Potassium 3.6 Chloride 103 Carbon Dioxide 24 Anion Gap 13 BUN 13 Creatinine 0.9 Est GFR ( Amer) > 60 Est GFR (Non-Af Amer) > 60 POC Glucose (mg/dL) Random Glucose 82 Calcium 8.1 L Phosphorus 3.5 Magnesium 1.4 L Total Bilirubin 0.7 AST 27 ALT 20 Alkaline Phosphatase 58 Total Protein 6.0 L Albumin 3.0 L D Globulin 3.0 Albumin/Globulin Ratio 1.0 Stool Leukocytes, Qual Positive H C. difficile Ag & Toxin Assessment & Plan - Assessment and Plan (Free Text) Assessment: 51F presents with abdominal pain 2/2 gastritis/Colitis Plan: - NPO, IVF, Abx - Pain control/ anti-emetic - Monitor bowel movements - serial abdominal exams - Recommend GI consult Further recs discuss with Dr. Tito Fierro, PGY1
[2016-12-01] MEDS: HYDROmorphone 1 mg/ml ISec IVP PRN ×3 (11:58→21:58)
[2016-12-01] MEDS: Enoxaparin 40 mg Syringe SC SCH (12:45)
[2016-12-02] MEDS: Ciprofloxacin 400mg/200ml D5W 400 MG/200 ML BAG IVPB SCH ×2 (02:12→15:13)
[2016-12-02] MEDS: metroNIDAZOLE IV 500 mg/100 ml 500 MG/100 ML BAG IVPB SCH ×3 (05:30→21:09)
[2016-12-02 07:37] LABS: BASO % 0.8 % (0.0-2.0); EOS # 0.2 K/uL (0.0-0.7); EOS % 6.9 % (0.0-4.0); HEMATOCRIT 25.3 % (34.0-47.0); LYMPH # 0.9 K/uL (1.0-4.3); LYMPH % 26.6 % (20.0-40.0); MEAN CELL VOLUME 96.8 fL (81.0-99.0); MEAN CORPUSCULAR HEMOGLOBIN 34.2 pg (27.0-31.0); MEAN CORPUSCULAR HGB CONC 35.4 g/dL (33.0-37.0); MEAN PLATELET VOLUME 7.1 fL (7.2-11.7); MONO # 0.6 K/uL (0.0-0.8); MONO % 17.3 % (0.0-10.0); RED CELL DISTRIBUTION WIDTH 12.9 % (11.5-14.5); WHITE BLOOD COUNT 3.3 K/uL (4.8-10.8)
[2016-12-02 07:52] LABS: CHLORIDE 103 mmol/L (98-107)
[2016-12-02 07:53] LABS: POTASSIUM 3.7 mmol/L (3.6-5.2); SODIUM 135 mmol/L (132-148)
[2016-12-02 07:56] LABS: ALB/GLOB RATIO 1.1 (1.0-2.1); ALKALINE PHOSPHATASE 67 U/L (38-126); ALT/SGPT 19 U/L (9-52); AST/SGOT 27 U/L (14-36); BILIRUBIN,TOTAL 0.7 mg/dL (0.2-1.3); BLOOD UREA NITROGEN 8 mg/dL (7-17); CALCIUM 8.2 mg/dl (8.6-10.4); CARBON DIOXIDE 24 mmol/L (22-30); GFR AFRICAN-AMERICAN > 60; GLUCOSE,RANDOM 109 mg/dL (65-105); PHOSPHOROUS 3.5 mg/dL (2.5-4.5); TOTAL PROTEIN 5.7 g/dL (6.3-8.3)
[2016-12-02 07:57] LABS: MAGNESIUM 1.5 mg/dL (1.6-2.3)
--- NOTE | 2016-12-02 07:57 | CP.PCM.PN ---
Subjective - Date & Time of Evaluation Date of Evaluation: 12/02/16 Time of Evaluation: 07:53 - Subjective Subjective: SURGERY PROGRESS NOTE FOR DR. SALINAS 51F seen and examined at bedside. Patient states the pain is resolved. States nausea is improved and denies vomiting. States she still has mild diarrhea. last one was at 230am. Objective - Vital Signs/Intake and Output Vital Signs (last 24 hours): Temp Pulse Resp BP Pulse Ox 98.1 F 69 20 117/79 97 12/02/16 07:34 12/02/16 07:34 12/02/16 07:34 12/02/16 07:34 12/02/16 07:34 Intake and Output: 12/02/16 12/02/16 06:59 18:59 Intake Total 1550 Balance 1550 - Medications Medications: Current Medications Enoxaparin Sodium (Lovenox) 40 mg SC DAILY [facility] Last Admin: 12/01/16 12:45 Dose: 40 mg Gemfibrozil (Lopid) 600 mg PO BIDBS [facility] Last Admin: 12/01/16 16:39 Dose: 600 mg Hydromorphone HCl (Dilaudid) 1 mg IVP Q4H PRN PRN Reason: Pain, severe (8-10) Last Admin: 12/01/16 21:58 Dose: 1 mg Ciprofloxacin (Cipro 400mg/200ml Dsw) 400 mg in 200 mls @ 133 mls/hr IVPB Q12H [facility] Last Admin: 12/02/16 02:12 Dose: 133 mls/hr Metronidazole (Flagyl) 500 mg in 100 mls @ 100 mls/hr IVPB Q8 [facility] Last Admin: 12/02/16 05:30 Dose: 100 mls/hr Lisinopril (Zestril) 40 mg PO DAILY [facility] Last Admin: 12/01/16 11:06 Dose: Not Given Morphine Sulfate (Morphine) 2 mg IVP Q4 PRN PRN Reason: Pain, moderate (4-7) Last Admin: 12/01/16 08:34 Dose: 2 mg Ondansetron HCl (Zofran Inj) 4 mg IVP Q6 PRN PRN Reason: NAUSEA/VOMITING Pantoprazole Sodium (Protonix Inj) 40 mg IVP DAILY [facility] Last Admin: 12/01/16 11:04 Dose: 40 mg Pneumococcal Polyvalent Vaccine (Pneumovax 23 Vaccine) 0.5 ml IM .ONCE ONE Stop: 12/02/16 10:01 Rosuvastatin Calcium (Crestor) 5 mg PO HS [facility] Last Admin: 12/01/16 21:58 Dose: 5 mg - Labs Labs: 12/02/16 07:23 12/01/16 07:15 - Constitutional Appears: Non-toxic, No Acute Distress - Respiratory Exam Respiratory Exam: Clear to Ausculation Bilateral, NORMAL BREATHING PATTERN - Cardiovascular Exam Cardiovascular Exam: REGULAR RHYTHM, +S1, +S2 - GI/Abdominal Exam GI & Abdominal Exam: Soft, Tenderness (mildly tender). absent: Distended, Firm , Guarding, Rigid, Rebound - Neurological Exam Neurological Exam: Alert, Awake - Skin Skin Exam: Dry, Intact, Normal Color, Warm Assessment and Plan - Assessment and Plan (Free Text) Assessment: 51F presents with colitis Plan: - Abx/IVF - advanced diet to Full liquids - continue pain control - encourage ambulation/IS - serial abdominal exams Further recs discuss with Dr. Tito Fierro
[2016-12-02] MEDS ORDERED: Pneumococcal 23-Valent Vaccine IM ONE (10:00)
[2016-12-02] MEDS: Magnesium Sulfate 1 gm in D5W 1 GM/100 ML BAG IVPB SCH ×2 (10:00→11:20)
[2016-12-02] MEDS: Enoxaparin 40 mg Syringe SC SCH (11:00)
[2016-12-02] MEDS: HYDROmorphone 1 mg/ml ISec IVP PRN (11:20)
--- NOTE | 2016-12-02 11:34 | CP.PCM.PN ---
<Raymon Mary - Last Filed: 12/02/16 11:34> Subjective - Date & Time of Evaluation Date of Evaluation: 12/02/16 Time of Evaluation: 11:30 - Subjective Subjective: Med progress note. Attending: Dr. Gamboa Pt seen and examined at bedside. No acute distress. No events overnight, still having some diarrhea, pain resolving. Sx workup in progress, likely no intervention. Denies fevers, chills, vomiting, cp, sob. Objective - Vital Signs/Intake and Output Vital Signs (last 24 hours): Temp Pulse Resp BP Pulse Ox 98.1 F 69 20 117/79 97 12/02/16 07:34 12/02/16 07:34 12/02/16 07:34 12/02/16 07:34 12/02/16 07:34 Intake and Output: 12/02/16 12/02/16 06:59 18:59 Intake Total 1550 Balance 1550 - Medications Medications: Current Medications Enoxaparin Sodium (Lovenox) 40 mg SC DAILY [facility] Last Admin: 12/02/16 11:00 Dose: 40 mg Gemfibrozil (Lopid) 600 mg PO BIDBS [facility] Last Admin: 12/02/16 08:30 Dose: 600 mg Hydromorphone HCl (Dilaudid) 1 mg IVP Q4H PRN PRN Reason: Pain, severe (8-10) Last Admin: 12/02/16 11:20 Dose: 1 mg Ciprofloxacin (Cipro 400mg/200ml Dsw) 400 mg in 200 mls @ 133 mls/hr IVPB Q12H [facility] Last Admin: 12/02/16 02:12 Dose: 133 mls/hr Metronidazole (Flagyl) 500 mg in 100 mls @ 100 mls/hr IVPB Q8 [facility] Last Admin: 12/02/16 05:30 Dose: 100 mls/hr Lisinopril (Zestril) 40 mg PO DAILY [facility] Last Admin: 12/01/16 11:06 Dose: Not Given Morphine Sulfate (Morphine) 2 mg IVP Q4 PRN PRN Reason: Pain, moderate (4-7) Last Admin: 12/01/16 08:34 Dose: 2 mg Ondansetron HCl (Zofran Inj) 4 mg IVP Q6 PRN PRN Reason: NAUSEA/VOMITING Pantoprazole Sodium (Protonix Inj) 40 mg IVP DAILY [facility] Last Admin: 12/02/16 11:00 Dose: 40 mg Rosuvastatin Calcium (Crestor) 5 mg PO HS [facility] Last Admin: 12/01/16 21:58 Dose: 5 mg - Labs Labs: 12/02/16 07:23 12/02/16 07:23 - Constitutional Appears: Non-toxic, No Acute Distress - Head Exam Head Exam: ATRAUMATIC, NORMAL INSPECTION, NORMOCEPHALIC - Eye Exam Eye Exam: EOMI - ENT Exam ENT Exam: Mucous Membranes Dry - Neck Exam Neck Exam: Full ROM, Normal Inspection - Respiratory Exam Respiratory Exam: NORMAL BREATHING PATTERN. absent: Respiratory Distress - Cardiovascular Exam Cardiovascular Exam: +S1, +S2 - GI/Abdominal Exam GI & Abdominal Exam: Soft, Tenderness, Normal Bowel Sounds - Extremities Exam Extremities Exam: Full ROM, Normal Inspection - Neurological Exam Neurological Exam: Alert, Awake, Oriented x3 - Psychiatric Exam Psychiatric exam: Normal Affect, Normal Mood - Skin Skin Exam: Dry, Intact, Normal Color, Warm Assessment and Plan - Assessment and Plan (Free Text) Assessment: This is a 51 yo female with past medical hx of HTN, HLD, gastritis presenting with abd pain x 2 days 1. Colitis -IVF 100 cc/hr>> will dc -morphine IV PRN pain>> will add dilaudid 1 mg iv q 4 prn severe pain -NPO>> changed to full liquids -cipro IV 400 q 12 -flagyl IV 500 q8 -stool WBCs positive -stool c diff neg -stool culture pending -ova/parasites pending -stool electrolytes pending -blood cultures x 2 negative -zofran for nausea -will repeat ua -sx consult. Dr. Francis. recs appreciated. -likely no intervention from sx 2. Hx of HTN -continue home lisinopril>>> will place on hold for low bp -hold hctz, norvasc 3. hx of HLD -will start crestor 5 mg PO HS 4. GI/DVT ppx -protonix 40 daily -SCDs discussed with Dr. Gamboa <Gama Gamboa - Last Filed: 12/03/16 12:21> Objective - Vital Signs/Intake and Output Vital Signs (last 24 hours): Temp Pulse Resp BP Pulse Ox 98.6 F 83 20 123/79 97 12/03/16 00:00 12/03/16 00:00 12/03/16 00:00 12/03/16 00:00 12/03/16 00:00 Intake and Output: 12/03/16 12/03/16 06:59 18:59 Intake Total 420 Balance 420 - Medications Medications: Current Medications Enoxaparin Sodium (Lovenox) 40 mg SC DAILY [facility] Last Admin: 12/03/16 11:19 Dose: 40 mg Gemfibrozil (Lopid) 600 mg PO BIDBS [facility] Last Admin: 12/03/16 08:49 Dose: 600 mg Hydromorphone HCl (Dilaudid) 1 mg IVP Q4H PRN PRN Reason: Pain, severe (8-10) Last Admin: 12/02/16 11:20 Dose: 1 mg Ciprofloxacin (Cipro 400mg/200ml Dsw) 400 mg in 200 mls @ 133 mls/hr IVPB Q12H [facility] Last Admin: 12/03/16 03:14 Dose: 133 mls/hr Metronidazole (Flagyl) 500 mg in 100 mls @ 100 mls/hr IVPB Q8 [facility] Last Admin: 12/03/16 05:44 Dose: 100 mls/hr Lisinopril (Zestril) 40 mg PO DAILY [facility] Last Admin: 12/01/16 11:06 Dose: Not Given Morphine Sulfate (Morphine) 2 mg IVP Q4 PRN PRN Reason: Pain, moderate (4-7) Last Admin: 12/01/16 08:34 Dose: 2 mg Ondansetron HCl (Zofran Inj) 4 mg IVP Q6 PRN PRN Reason: NAUSEA/VOMITING Pantoprazole Sodium (Protonix Inj) 40 mg IVP DAILY [facility] Last Admin: 12/03/16 11:20 Dose: 40 mg Rosuvastatin Calcium (Crestor) 5 mg PO HS [facility] Last Admin: 12/02/16 21:09 Dose: 5 mg - Labs Labs: 12/03/16 07:00 12/03/16 07:00 Attending/Attestation - Attestation I have personally seen and examined this patient.: Yes I have fully participated in the care of the patient.: Yes I have reviewed all pertinent clinical information, including history, physical exam and plan: Yes Notes (Text): Medical attending: Patient was seen and examined by me. Agree with the above note by the resident. The patient still had abdominal pain however was improved from before. Conintue with the Cipro and Flagyl. So far the blood cultures are negative for 2 days, the OP and C diff are negative as well. Review of lab work shows that the bandemia has decreased substantially from 27 to 8 bands Her diet was increased as well, we advised her to eat slowly thank you Gama Gamboa
[2016-12-03] MEDS: Ciprofloxacin 400mg/200ml D5W 400 MG/200 ML BAG IVPB SCH ×2 (03:14→14:01)
[2016-12-03] MEDS: metroNIDAZOLE IV 500 mg/100 ml 500 MG/100 ML BAG IVPB SCH ×3 (05:44→21:17)
[2016-12-03 07:14] LABS: BASO % 0.8 % (0.0-2.0); EOS # 0.3 K/uL (0.0-0.7); EOS % 7.1 % (0.0-4.0); HEMATOCRIT 26.1 % (34.0-47.0); LYMPH % 25.2 % (20.0-40.0); MEAN CELL VOLUME 95.3 fL (81.0-99.0); MEAN CORPUSCULAR HGB CONC 34.6 g/dL (33.0-37.0); MEAN PLATELET VOLUME 7.3 fL (7.2-11.7); MONO # 0.8 K/uL (0.0-0.8); MONO % 20.8 % (0.0-10.0); NRBC % 0.1 % (0.0-2.0); PLATELET COUNT 250 K/uL (130-400); RED CELL DISTRIBUTION WIDTH 13.2 % (11.5-14.5); WHITE BLOOD COUNT 3.8 K/uL (4.8-10.8)
[2016-12-03 07:28] LABS: CHLORIDE 106 mmol/L (98-107); POTASSIUM 3.5 mmol/L (3.6-5.2); SODIUM 137 mmol/L (132-148)
[2016-12-03 07:30] LABS: GFR AFRICAN-AMERICAN > 60
[2016-12-03 07:31] LABS: ALB/GLOB RATIO 1.1 (1.0-2.1); ALKALINE PHOSPHATASE 74 U/L (38-126); ALT/SGPT 29 U/L (9-52); AST/SGOT 46 U/L (14-36); BILIRUBIN,TOTAL 0.7 mg/dL (0.2-1.3); BLOOD UREA NITROGEN 7 mg/dL (7-17); CARBON DIOXIDE 23 mmol/L (22-30); GLUCOSE,RANDOM 115 mg/dL (65-105); PHOSPHOROUS 3.2 mg/dL (2.5-4.5); TOTAL PROTEIN 6.1 g/dL (6.3-8.3)
[2016-12-03 07:32] LABS: CALCIUM 8.4 mg/dl (8.6-10.4); MAGNESIUM 1.4 mg/dL (1.6-2.3)
[2016-12-03 09:02] LABS: EOSINOPHIL 9 % (0-4); LARGE PLATELETS PRESENT; NEUTROPHIL 42 % (50-75); TOTAL CELLS COUNTED 100
[2016-12-03 09:03] LABS: GIANT PLATELETS PRESENT; PLATELET CLUMPS PRESENT
[2016-12-03 09:22] LABS: RBC URINE 1 /hpf (0-3); URINE BILIRUBIN NEGATIVE (NEGATIVE); URINE BLOOD NEGATIVE (NEGATIVE); URINE COLOR Yellow (YELLOW); URINE GLUCOSE (UA) NORMAL (Normal); URINE KETONE NEGATIVE (NEGATIVE); URINE LEUKOCYTE ESTERASE TRACE Leu/uL (Negative); URINE PROTEIN NEGATIVE (NEGATIVE); URINE UROBILINOGEN NORMAL mg/dL (0.2-1.0); WBC URINE < 1 /hpf (0-5)
--- NOTE | 2016-12-03 11:16 | CP.PCM.PN ---
Subjective - Date & Time of Evaluation Date of Evaluation: 12/03/16 Time of Evaluation: 11:16 - Subjective Subjective: Surgery: Dr. Francis Pt seen and examined. Resting comfortably in bed. Pain improved. Nausea/ vomiting improved. Diarrhea persists. Pt wants to try regular diet. Objective - Vital Signs/Intake and Output Vital Signs (last 24 hours): Temp Pulse Resp BP Pulse Ox 98.6 F 83 20 123/79 97 12/03/16 00:00 12/03/16 00:00 12/03/16 00:00 12/03/16 00:00 12/03/16 00:00 Intake and Output: 12/03/16 12/03/16 06:59 18:59 Intake Total 420 Balance 420 - Medications Medications: Current Medications Enoxaparin Sodium (Lovenox) 40 mg SC DAILY [facility] Last Admin: 12/02/16 11:00 Dose: 40 mg Gemfibrozil (Lopid) 600 mg PO BIDBS [facility] Last Admin: 12/03/16 08:49 Dose: 600 mg Hydromorphone HCl (Dilaudid) 1 mg IVP Q4H PRN PRN Reason: Pain, severe (8-10) Last Admin: 12/02/16 11:20 Dose: 1 mg Ciprofloxacin (Cipro 400mg/200ml Dsw) 400 mg in 200 mls @ 133 mls/hr IVPB Q12H [facility] Last Admin: 12/03/16 03:14 Dose: 133 mls/hr Metronidazole (Flagyl) 500 mg in 100 mls @ 100 mls/hr IVPB Q8 [facility] Last Admin: 12/03/16 05:44 Dose: 100 mls/hr Lisinopril (Zestril) 40 mg PO DAILY [facility] Last Admin: 12/01/16 11:06 Dose: Not Given Morphine Sulfate (Morphine) 2 mg IVP Q4 PRN PRN Reason: Pain, moderate (4-7) Last Admin: 12/01/16 08:34 Dose: 2 mg Ondansetron HCl (Zofran Inj) 4 mg IVP Q6 PRN PRN Reason: NAUSEA/VOMITING Pantoprazole Sodium (Protonix Inj) 40 mg IVP DAILY [facility] Last Admin: 12/02/16 11:00 Dose: 40 mg Rosuvastatin Calcium (Crestor) 5 mg PO HS [facility] Last Admin: 12/02/16 21:09 Dose: 5 mg - Labs Labs: 12/03/16 07:00 12/03/16 07:00 - Constitutional Appears: Non-toxic, No Acute Distress - Head Exam Head Exam: ATRAUMATIC, NORMOCEPHALIC - Eye Exam Eye Exam: EOMI - ENT Exam ENT Exam: Mucous Membranes Moist - Neck Exam Neck Exam: Full ROM - Respiratory Exam Respiratory Exam: NORMAL BREATHING PATTERN. absent: Accessory Muscle Use, Respiratory Distress - GI/Abdominal Exam GI & Abdominal Exam: Soft. absent: Distended, Firm, Guarding, Rigid, Tenderness , Rebound - Extremities Exam Extremities Exam: absent: Calf Tenderness, Pedal Edema - Neurological Exam Neurological Exam: Alert, Awake, Oriented x3 Assessment and Plan - Assessment and Plan (Free Text) Assessment: 51F w. colitis -will advance diet to regular -c/w abx -repeat c. diff -stool occult blood +, recommend GI consult for future colonoscopy -d/w attending Willimaitis PGY2
[2016-12-03] MEDS: Enoxaparin 40 mg Syringe SC SCH (11:19)
--- NOTE | 2016-12-03 19:27 | CP.PCM.PN ---
<Reagan Javed - Last Filed: 12/03/16 19:22> Subjective - Date & Time of Evaluation Date of Evaluation: 12/03/16 Time of Evaluation: 13:00 - Subjective Subjective: Medicine Note- Hospitalist Service Patient was seen and examined at bedside. Patient reports that she still has significantly watery diarrhea. She says anytime she eats anything, she immediately has to go to the bathroom. When she isn't eating or drinking anything, she is feeling okay. Abdomen feels more distended than usual. No events overnight per nursing. Objective - Vital Signs/Intake and Output Vital Signs (last 24 hours): Temp Pulse Resp BP Pulse Ox 98.1 F 78 20 130/84 96 12/03/16 15:00 12/03/16 15:00 12/03/16 15:00 12/03/16 15:00 12/03/16 15:00 Intake and Output: 12/03/16 12/04/16 18:59 06:59 Intake Total 1200 Balance 1200 - Medications Medications: Current Medications Enoxaparin Sodium (Lovenox) 40 mg SC DAILY [facility] Last Admin: 12/03/16 11:19 Dose: 40 mg Gemfibrozil (Lopid) 600 mg PO BIDBS [facility] Last Admin: 12/03/16 16:30 Dose: 600 mg Hydromorphone HCl (Dilaudid) 1 mg IVP Q4H PRN PRN Reason: Pain, severe (8-10) Last Admin: 12/02/16 11:20 Dose: 1 mg Ciprofloxacin (Cipro 400mg/200ml Dsw) 400 mg in 200 mls @ 133 mls/hr IVPB Q12H [facility] Last Admin: 12/03/16 14:01 Dose: 133 mls/hr Metronidazole (Flagyl) 500 mg in 100 mls @ 100 mls/hr IVPB Q8 [facility] Last Admin: 12/03/16 13:54 Dose: 100 mls/hr Lisinopril (Zestril) 40 mg PO DAILY [facility] Last Admin: 12/01/16 11:06 Dose: Not Given Morphine Sulfate (Morphine) 2 mg IVP Q4 PRN PRN Reason: Pain, moderate (4-7) Last Admin: 12/01/16 08:34 Dose: 2 mg Ondansetron HCl (Zofran Inj) 4 mg IVP Q6 PRN PRN Reason: NAUSEA/VOMITING Pantoprazole Sodium (Protonix Inj) 40 mg IVP DAILY [facility] Last Admin: 12/03/16 11:20 Dose: 40 mg Rosuvastatin Calcium (Crestor) 5 mg PO HS [facility] Last Admin: 12/02/16 21:09 Dose: 5 mg - Labs Labs: 12/03/16 07:00 12/03/16 07:00 - Constitutional Appears: Non-toxic, No Acute Distress - Head Exam Head Exam: ATRAUMATIC, NORMAL INSPECTION, NORMOCEPHALIC - Eye Exam Pupil Exam: NORMAL ACCOMODATION, PERRL - ENT Exam ENT Exam: Mucous Membranes Moist - Respiratory Exam Respiratory Exam: Clear to Ausculation Bilateral, NORMAL BREATHING PATTERN. absent: Prolonged Expiratory Phase, Rales, Rhonchi, Wheezes - Cardiovascular Exam Cardiovascular Exam: REGULAR RHYTHM, +S1, +S2 - GI/Abdominal Exam GI & Abdominal Exam: Soft, Tenderness (left sided tenderness), Normal Bowel Sounds - Extremities Exam Extremities Exam: Normal Capillary Refill, Normal Inspection - Neurological Exam Neurological Exam: Alert, Awake, Oriented x3 - Psychiatric Exam Psychiatric exam: Normal Affect, Normal Mood - Skin Skin Exam: Dry, Intact, Normal Color, Warm Assessment and Plan - Assessment and Plan (Free Text) Assessment: 1. Colitis -Consult Surgery- Dr. Francis -IVF 100 cc/hr>> will dc -morphine 2mg IV Q4h PRN pain - Dilaudid 1mg IVP Q4h PRN for pain - Diet advanced to Regular -Cipro IV 400 IVPB Q12h -Flagyl IV 500 IVPB Q8h -stool WBCs positive -stool c diff neg -stool culture pending -ova/parasites pending -stool electrolytes pending -blood cultures x 2 negative -zofran for nausea Repeat UA normal 2. Hx of HTN -continue home lisinopril 40mg PO Daily 3. Hx of HLD -Continue crestor 5 mg PO HS 4. GI/DVT ppx -protonix 40 daily -SCDs <Gamboa,Peter H - Last Filed: 12/04/16 07:50> Objective - Vital Signs/Intake and Output Vital Signs (last 24 hours): Temp Pulse Resp BP Pulse Ox 97.8 F 79 20 118/83 95 12/04/16 00:00 12/04/16 00:00 12/04/16 00:00 12/04/16 00:00 12/04/16 00:00 Intake and Output: 12/04/16 12/04/16 06:59 18:59 Intake Total 500 Balance 500 - Medications Medications: Current Medications Enoxaparin Sodium (Lovenox) 40 mg SC DAILY [facility] Last Admin: 12/03/16 11:19 Dose: 40 mg Gemfibrozil (Lopid) 600 mg PO BIDBS [facility] Last Admin: 12/04/16 07:01 Dose: 600 mg Hydromorphone HCl (Dilaudid) 1 mg IVP Q4H PRN PRN Reason: Pain, severe (8-10) Last Admin: 12/02/16 11:20 Dose: 1 mg Ciprofloxacin (Cipro 400mg/200ml Dsw) 400 mg in 200 mls @ 133 mls/hr IVPB Q12H [facility] Last Admin: 12/04/16 02:40 Dose: 133 mls/hr Metronidazole (Flagyl) 500 mg in 100 mls @ 100 mls/hr IVPB Q8 [facility] Last Admin: 12/04/16 05:36 Dose: 100 mls/hr Lisinopril (Zestril) 40 mg PO DAILY [facility] Morphine Sulfate (Morphine) 2 mg IVP Q4 PRN PRN Reason: Pain, moderate (4-7) Last Admin: 12/01/16 08:34 Dose: 2 mg Ondansetron HCl (Zofran Inj) 4 mg IVP Q6 PRN PRN Reason: NAUSEA/VOMITING Pantoprazole Sodium (Protonix Inj) 40 mg IVP DAILY [facility] Last Admin: 12/03/16 11:20 Dose: 40 mg Potassium Chloride (K-Dur 20 Meq Er Tab) 40 meq PO ONCE ONE Stop: 12/04/16 19:23 Rosuvastatin Calcium (Crestor) 5 mg PO HS [facility] Last Admin: 12/03/16 21:16 Dose: 5 mg - Labs Labs: 12/04/16 06:50 12/03/16 07:00 Attending/Attestation - Attestation I have personally seen and examined this patient.: Yes I have fully participated in the care of the patient.: Yes I have reviewed all pertinent clinical information, including history, physical exam and plan: Yes Notes (Text): Medical Attending: Patient was seen and examined by me. She reported feeling much better than before. For now will continue with the Cipro and Flagyl. She still tells us she has darrhea - not as severe as before. So far the stool OP and stool culture, CDiff is negative. She will need to eventually follow up in the [facility] for eventual refferal to GI in the future for potential colonscopy Her diet was advanced, she says she is holding it down but has to eat slowly otherwise thank you Gama Gamboa
[2016-12-04] MEDS: Ciprofloxacin 400mg/200ml D5W 400 MG/200 ML BAG IVPB SCH ×2 (02:40→14:09)
[2016-12-04] MEDS: metroNIDAZOLE IV 500 mg/100 ml 500 MG/100 ML BAG IVPB SCH ×3 (05:36→21:25)
--- NOTE | 2016-12-04 06:41 | CP.PCM.PN ---
Subjective - Date & Time of Evaluation Date of Evaluation: 12/04/16 Time of Evaluation: 06:38 - Subjective Subjective: Surgery: Dr. Francis Pt seen and examined. Resting comfortably in bed. Pain significantly improved compared to other day. Pt was started on regular diet. Diet tolerated. No N/V. Diarrhea persists. Objective - Vital Signs/Intake and Output Vital Signs (last 24 hours): Temp Pulse Resp BP Pulse Ox 97.8 F 79 20 118/83 95 12/04/16 00:00 12/04/16 00:00 12/04/16 00:00 12/04/16 00:00 12/04/16 00:00 Intake and Output: 12/03/16 12/04/16 18:59 06:59 Intake Total 1200 Balance 1200 - Medications Medications: Current Medications Enoxaparin Sodium (Lovenox) 40 mg SC DAILY [facility] Last Admin: 12/03/16 11:19 Dose: 40 mg Gemfibrozil (Lopid) 600 mg PO BIDBS [facility] Last Admin: 12/03/16 16:30 Dose: 600 mg Hydromorphone HCl (Dilaudid) 1 mg IVP Q4H PRN PRN Reason: Pain, severe (8-10) Last Admin: 12/02/16 11:20 Dose: 1 mg Ciprofloxacin (Cipro 400mg/200ml Dsw) 400 mg in 200 mls @ 133 mls/hr IVPB Q12H [facility] Last Admin: 12/04/16 02:40 Dose: 133 mls/hr Metronidazole (Flagyl) 500 mg in 100 mls @ 100 mls/hr IVPB Q8 [facility] Last Admin: 12/04/16 05:36 Dose: 100 mls/hr Lisinopril (Zestril) 40 mg PO DAILY [facility] Morphine Sulfate (Morphine) 2 mg IVP Q4 PRN PRN Reason: Pain, moderate (4-7) Last Admin: 12/01/16 08:34 Dose: 2 mg Ondansetron HCl (Zofran Inj) 4 mg IVP Q6 PRN PRN Reason: NAUSEA/VOMITING Pantoprazole Sodium (Protonix Inj) 40 mg IVP DAILY [facility] Last Admin: 12/03/16 11:20 Dose: 40 mg Potassium Chloride (K-Dur 20 Meq Er Tab) 40 meq PO ONCE ONE Stop: 12/04/16 19:23 Rosuvastatin Calcium (Crestor) 5 mg PO HS [facility] Last Admin: 12/03/16 21:16 Dose: 5 mg - Labs Labs: 12/03/16 07:00 12/03/16 07:00 - Constitutional Appears: Non-toxic, No Acute Distress - Head Exam Head Exam: ATRAUMATIC, NORMOCEPHALIC - Eye Exam Eye Exam: EOMI - ENT Exam ENT Exam: Mucous Membranes Moist - Neck Exam Neck Exam: Full ROM - Respiratory Exam Respiratory Exam: NORMAL BREATHING PATTERN. absent: Accessory Muscle Use, Respiratory Distress - GI/Abdominal Exam GI & Abdominal Exam: Soft. absent: Distended, Firm, Guarding, Rigid, Tenderness , Rebound - Neurological Exam Neurological Exam: Alert, Awake, Oriented x3 Assessment and Plan - Assessment and Plan (Free Text) Assessment: 51F w. colitis -diarrhea persists, f/u repeat C. Diff -c/w abx -stool occult blood +, recommend GI consult for future colonoscopy -d/w attending Zemaitis PGY2
[2016-12-04 07:00] LABS: BASO % 0.7 % (0.0-2.0); EOS # 0.3 K/uL (0.0-0.7); EOS % 6.7 % (0.0-4.0); HEMATOCRIT 27.1 % (34.0-47.0); LYMPH # 1.4 K/uL (1.0-4.3); LYMPH % 29.7 % (20.0-40.0); MEAN CELL VOLUME 95.3 fL (81.0-99.0); MEAN CORPUSCULAR HEMOGLOBIN 33.1 pg (27.0-31.0); MEAN CORPUSCULAR HGB CONC 34.7 g/dL (33.0-37.0); MONO # 0.9 K/uL (0.0-0.8); MONO % 19.5 % (0.0-10.0); NRBC % 0.1 % (0.0-2.0); WHITE BLOOD COUNT 4.6 K/uL (4.8-10.8)
[2016-12-04 07:59] LABS: ALB/GLOB RATIO 1.1 (1.0-2.1); ALKALINE PHOSPHATASE 84 U/L (38-126); ALT/SGPT 41 U/L (9-52); AST/SGOT 52 U/L (14-36); BILIRUBIN,TOTAL 0.7 mg/dL (0.2-1.3); BLOOD UREA NITROGEN 11 mg/dL (7-17); CALCIUM 8.3 mg/dl (8.6-10.4); CARBON DIOXIDE 21 mmol/L (22-30); CHLORIDE 107 mmol/L (98-107); GFR AFRICAN-AMERICAN > 60; GLUCOSE,RANDOM 112 mg/dL (65-105); POTASSIUM 3.8 mmol/L (3.6-5.2); SODIUM 139 mmol/L (132-148); TOTAL PROTEIN 6.3 g/dL (6.3-8.3)
[2016-12-04] MEDS: Enoxaparin 40 mg Syringe SC SCH (10:13)
--- NOTE | 2016-12-04 10:18 | CP.PCM.PN ---
<TelloReagan - Last Filed: 12/04/16 10:16> Subjective - Date & Time of Evaluation Date of Evaluation: 12/04/16 Time of Evaluation: 07:35 - Subjective Subjective: Medicine Note- Hospitalist Service Patient was seen and examined at bedside. Patient reports no acute complaints at this time. She says she still has diarrhea, but it has lessened since her admission. Similarly, her abdominal pain has improved since admission. No nausea or vomiting. No bloody or black stools. No events overnight, per nursing. Objective - Vital Signs/Intake and Output Vital Signs (last 24 hours): Temp Pulse Resp BP Pulse Ox 97.8 F 79 20 118/83 95 12/04/16 00:00 12/04/16 00:00 12/04/16 00:00 12/04/16 00:00 12/04/16 00:00 Intake and Output: 12/04/16 12/04/16 06:59 18:59 Intake Total 500 Balance 500 - Medications Medications: Current Medications Enoxaparin Sodium (Lovenox) 40 mg SC DAILY [facility] Last Admin: 12/04/16 10:13 Dose: 40 mg Gemfibrozil (Lopid) 600 mg PO BIDBS [facility] Last Admin: 12/04/16 07:01 Dose: 600 mg Hydromorphone HCl (Dilaudid) 1 mg IVP Q4H PRN PRN Reason: Pain, severe (8-10) Last Admin: 12/02/16 11:20 Dose: 1 mg Ciprofloxacin (Cipro 400mg/200ml Dsw) 400 mg in 200 mls @ 133 mls/hr IVPB Q12H [facility] Last Admin: 12/04/16 02:40 Dose: 133 mls/hr Metronidazole (Flagyl) 500 mg in 100 mls @ 100 mls/hr IVPB Q8 [facility] Last Admin: 12/04/16 05:36 Dose: 100 mls/hr Lisinopril (Zestril) 40 mg PO DAILY [facility] Last Admin: 12/04/16 10:12 Dose: 40 mg Morphine Sulfate (Morphine) 2 mg IVP Q4 PRN PRN Reason: Pain, moderate (4-7) Last Admin: 12/01/16 08:34 Dose: 2 mg Ondansetron HCl (Zofran Inj) 4 mg IVP Q6 PRN PRN Reason: NAUSEA/VOMITING Pantoprazole Sodium (Protonix Inj) 40 mg IVP DAILY [facility] Last Admin: 12/04/16 10:12 Dose: 40 mg Potassium Chloride (K-Dur 20 Meq Er Tab) 40 meq PO ONCE ONE Stop: 12/04/16 19:23 Rosuvastatin Calcium (Crestor) 5 mg PO HS [facility] Last Admin: 12/03/16 21:16 Dose: 5 mg - Labs Labs: 12/04/16 06:50 12/04/16 06:50 - Constitutional Appears: Non-toxic, No Acute Distress - Head Exam Head Exam: ATRAUMATIC, NORMAL INSPECTION, NORMOCEPHALIC - Eye Exam Eye Exam: Normal appearance - ENT Exam ENT Exam: Mucous Membranes Moist - Respiratory Exam Respiratory Exam: Clear to Ausculation Bilateral, NORMAL BREATHING PATTERN. absent: Prolonged Expiratory Phase, Rales, Rhonchi, Wheezes - Cardiovascular Exam Cardiovascular Exam: REGULAR RHYTHM, +S1, +S2 - GI/Abdominal Exam GI & Abdominal Exam: Soft, Normal Bowel Sounds. absent: Tenderness, Hyperactive Bowel Sounds - Extremities Exam Extremities Exam: Normal Capillary Refill, Normal Inspection - Neurological Exam Neurological Exam: Alert, Awake, Oriented x3 - Psychiatric Exam Psychiatric exam: Normal Affect, Normal Mood - Skin Skin Exam: Dry, Intact, Normal Color, Warm Assessment and Plan - Assessment and Plan (Free Text) Assessment: 1. Colitis -Consult Surgery- Dr. Francis -IVF 100 cc/hr>> will dc -morphine 2mg IV Q4h PRN pain - Dilaudid 1mg IVP Q4h PRN for pain - Diet advanced to Regular -Cipro IV 400 IVPB Q12h -Flagyl IV 500 IVPB Q8h -stool WBCs positive -stool c diff neg -stool culturenegative -Stool occult positive- Hgb stable. No hematochezia or melena observed. Last Colonoscopy per pt was 2 years ago, showed polyps. Recommended to patient that she get an outpatient GI evaluation upon discharge. Will continue to monitor. -ova/parasites negative -stool electrolytes pending -blood cultures x 2 - no growth after 3 days -zofran for nausea Repeat UA normal 2. Hx of HTN -continue home lisinopril 40mg PO Daily 3. Hx of HLD -Continue crestor 5 mg PO HS 4. GI/DVT ppx -protonix 40 daily -SCDs <Gamboa,Peter H - Last Filed: 12/04/16 10:27> Objective - Vital Signs/Intake and Output Vital Signs (last 24 hours): Temp Pulse Resp BP Pulse Ox 97.8 F 79 20 118/83 95 12/04/16 00:00 12/04/16 00:00 12/04/16 00:00 12/04/16 00:00 12/04/16 00:00 Intake and Output: 12/04/16 12/04/16 06:59 18:59 Intake Total 500 Balance 500 - Medications Medications: Current Medications Enoxaparin Sodium (Lovenox) 40 mg SC DAILY [facility] Last Admin: 12/04/16 10:13 Dose: 40 mg Gemfibrozil (Lopid) 600 mg PO BIDBS [facility] Last Admin: 12/04/16 07:01 Dose: 600 mg Hydromorphone HCl (Dilaudid) 1 mg IVP Q4H PRN PRN Reason: Pain, severe (8-10) Last Admin: 12/02/16 11:20 Dose: 1 mg Ciprofloxacin (Cipro 400mg/200ml Dsw) 400 mg in 200 mls @ 133 mls/hr IVPB Q12H [facility] Last Admin: 12/04/16 02:40 Dose: 133 mls/hr Metronidazole (Flagyl) 500 mg in 100 mls @ 100 mls/hr IVPB Q8 [facility] Last Admin: 12/04/16 05:36 Dose: 100 mls/hr Lisinopril (Zestril) 40 mg PO DAILY [facility] Last Admin: 12/04/16 10:12 Dose: 40 mg Morphine Sulfate (Morphine) 2 mg IVP Q4 PRN PRN Reason: Pain, moderate (4-7) Last Admin: 12/01/16 08:34 Dose: 2 mg Ondansetron HCl (Zofran Inj) 4 mg IVP Q6 PRN PRN Reason: NAUSEA/VOMITING Pantoprazole Sodium (Protonix Inj) 40 mg IVP DAILY [facility] Last Admin: 12/04/16 10:12 Dose: 40 mg Potassium Chloride (K-Dur 20 Meq Er Tab) 40 meq PO ONCE ONE Stop: 12/04/16 19:23 Rosuvastatin Calcium (Crestor) 5 mg PO HS [facility] Last Admin: 12/03/16 21:16 Dose: 5 mg - Labs Labs: 12/04/16 06:50 12/04/16 06:50 Attending/Attestation - Attestation I have personally seen and examined this patient.: Yes I have fully participated in the care of the patient.: Yes I have reviewed all pertinent clinical information, including history, physical exam and plan: Yes Notes (Text): Medical Attending: Patient was seen and examined by me. Agree with the above note by the resident. The patient says she feels better. She thinks we are going in the right direction. She tolerated her diet and also less abdominal pain. In the future will need to follow up with [facility] for future GI refferal So far none of the cultures have returned positive. I explained to patient that she may still have had a bacterial infection however it could be other things such as viral or a food toxin that she had on the Monday before she came in thank you Gama Gamboa
[2016-12-04] MEDS: Magnesium Sulfate 1 gm in D5W 1 GM/100 ML BAG IVPB SCH ×4 (17:52→18:30)
[2016-12-04] MEDS ORDERED: Potassium Chloride 20 mEq ER Tab PO ONE (19:22)
[2016-12-05] MEDS: Ciprofloxacin 400mg/200ml D5W 400 MG/200 ML BAG IVPB SCH ×2 (03:25→14:32)
[2016-12-05] MEDS: metroNIDAZOLE IV 500 mg/100 ml 500 MG/100 ML BAG IVPB SCH ×2 (05:45→14:32)
[2016-12-05 06:24] LABS: EOS # 0.4 K/uL (0.0-0.7); LYMPH # 1.9 K/uL (1.0-4.3); LYMPH % 32.9 % (20.0-40.0)
[2016-12-05 06:30] LABS: BASO % 0.6 % (0.0-2.0); EOS % 6.4 % (0.0-4.0); HEMATOCRIT 27.5 % (34.0-47.0); MEAN CELL VOLUME 96.6 fL (81.0-99.0); MEAN CORPUSCULAR HEMOGLOBIN 33.7 pg (27.0-31.0); MEAN CORPUSCULAR HGB CONC 34.9 g/dL (33.0-37.0); MEAN PLATELET VOLUME 7.4 fL (7.2-11.7); MONO % 17.1 % (0.0-10.0); NRBC % 0.1 % (0.0-2.0); WHITE BLOOD COUNT 5.7 K/uL (4.8-10.8)
[2016-12-05 06:39] LABS: CHLORIDE 108 mmol/L (98-107); POTASSIUM 4.3 mmol/L (3.6-5.2); SODIUM 139 mmol/L (132-148)
[2016-12-05 06:41] LABS: GFR AFRICAN-AMERICAN > 60
[2016-12-05 06:42] LABS: ALB/GLOB RATIO 1.1 (1.0-2.1); ALKALINE PHOSPHATASE 77 U/L (38-126); ALT/SGPT 50 U/L (9-52); AST/SGOT 82 U/L (14-36); BILIRUBIN,TOTAL 0.6 mg/dL (0.2-1.3); BLOOD UREA NITROGEN 11 mg/dL (7-17); CALCIUM 8.3 mg/dl (8.6-10.4); CARBON DIOXIDE 22 mmol/L (22-30); GLUCOSE,RANDOM 118 mg/dL (65-105); TOTAL PROTEIN 6.3 g/dL (6.3-8.3)
--- NOTE | 2016-12-05 07:39 | CP.PCM.PN ---
Subjective - Date & Time of Evaluation Date of Evaluation: 12/05/16 Time of Evaluation: 07:36 - Subjective Subjective: Gen Sx: Dr Francis Pt S&E. NAEO. Pain significantly improved. Denies N/V, F/C. No diarrhea since 10PM last night. Has been OOB and ambulating. Pt is comfortable to be D/ C today Objective - Vital Signs/Intake and Output Vital Signs (last 24 hours): Temp Pulse Resp BP Pulse Ox 97.8 F 68 20 114/76 97 12/05/16 00:00 12/05/16 00:00 12/05/16 00:00 12/05/16 00:00 12/05/16 00:00 Intake and Output: 12/05/16 12/05/16 06:59 18:59 Intake Total 540 Balance 540 - Medications Medications: Current Medications Enoxaparin Sodium (Lovenox) 40 mg SC DAILY [facility] Last Admin: 12/04/16 10:13 Dose: 40 mg Gemfibrozil (Lopid) 600 mg PO BIDBS [facility] Last Admin: 12/05/16 07:05 Dose: 600 mg Hydromorphone HCl (Dilaudid) 1 mg IVP Q4H PRN PRN Reason: Pain, severe (8-10) Last Admin: 12/02/16 11:20 Dose: 1 mg Ciprofloxacin (Cipro 400mg/200ml Dsw) 400 mg in 200 mls @ 133 mls/hr IVPB Q12H [facility] Last Admin: 12/05/16 03:25 Dose: 133 mls/hr Metronidazole (Flagyl) 500 mg in 100 mls @ 100 mls/hr IVPB Q8 [facility] Last Admin: 12/05/16 05:45 Dose: 100 mls/hr Lisinopril (Zestril) 40 mg PO DAILY [facility] Last Admin: 12/04/16 10:12 Dose: 40 mg Morphine Sulfate (Morphine) 2 mg IVP Q4 PRN PRN Reason: Pain, moderate (4-7) Last Admin: 12/01/16 08:34 Dose: 2 mg Ondansetron HCl (Zofran Inj) 4 mg IVP Q6 PRN PRN Reason: NAUSEA/VOMITING Pantoprazole Sodium (Protonix Ec Tab) 40 mg PO DAILY [facility] Rosuvastatin Calcium (Crestor) 5 mg PO HS [facility] Last Admin: 12/04/16 21:26 Dose: 5 mg - Labs Labs: 12/05/16 06:15 12/05/16 06:15 - Constitutional Appears: Non-toxic, No Acute Distress - Head Exam Head Exam: NORMOCEPHALIC - Respiratory Exam Respiratory Exam: absent: Accessory Muscle Use, Respiratory Distress - Cardiovascular Exam Cardiovascular Exam: REGULAR RHYTHM - GI/Abdominal Exam GI & Abdominal Exam: Soft, Tenderness (minimal LLQ). absent: Distended, Firm, Guarding - Neurological Exam Neurological Exam: Alert, Awake, Oriented x3 - Psychiatric Exam Psychiatric exam: Normal Affect, Normal Mood - Skin Skin Exam: Normal Color, Warm Assessment and Plan - Assessment and Plan (Free Text) Assessment: 51F with colitis; resolving Plan: pt with minimal pain tolerating regular diet Cdiff negative pt is clear for d/c from surgical perspective needs to follow up with GI for repeat colonoscopy and investigation of occult blood in stool d/w Dr Tito Lal, PGY2
--- NOTE | 2016-12-05 08:54 | CP.PCM.PN ---
Subjective - Date & Time of Evaluation Date of Evaluation: 12/05/16 Time of Evaluation: 08:45 Objective - Vital Signs/Intake and Output Vital Signs (last 24 hours): Temp Pulse Resp BP Pulse Ox 97.9 F 70 20 131/79 97 12/05/16 07:55 12/05/16 07:55 12/05/16 07:55 12/05/16 07:55 12/05/16 07:55 Intake and Output: 12/05/16 12/05/16 06:59 18:59 Intake Total 540 Balance 540 - Medications Medications: Current Medications Enoxaparin Sodium (Lovenox) 40 mg SC DAILY [facility] Last Admin: 12/04/16 10:13 Dose: 40 mg Gemfibrozil (Lopid) 600 mg PO BIDBS [facility] Last Admin: 12/05/16 07:05 Dose: 600 mg Hydromorphone HCl (Dilaudid) 1 mg IVP Q4H PRN PRN Reason: Pain, severe (8-10) Last Admin: 12/02/16 11:20 Dose: 1 mg Ciprofloxacin (Cipro 400mg/200ml Dsw) 400 mg in 200 mls @ 133 mls/hr IVPB Q12H [facility] Last Admin: 12/05/16 03:25 Dose: 133 mls/hr Metronidazole (Flagyl) 500 mg in 100 mls @ 100 mls/hr IVPB Q8 [facility] Last Admin: 12/05/16 05:45 Dose: 100 mls/hr Lisinopril (Zestril) 40 mg PO DAILY [facility] Last Admin: 12/04/16 10:12 Dose: 40 mg Morphine Sulfate (Morphine) 2 mg IVP Q4 PRN PRN Reason: Pain, moderate (4-7) Last Admin: 12/01/16 08:34 Dose: 2 mg Ondansetron HCl (Zofran Inj) 4 mg IVP Q6 PRN PRN Reason: NAUSEA/VOMITING Pantoprazole Sodium (Protonix Ec Tab) 40 mg PO DAILY [facility] Rosuvastatin Calcium (Crestor) 5 mg PO HS [facility] Last Admin: 12/04/16 21:26 Dose: 5 mg - Labs Labs: 12/05/16 06:15 12/05/16 06:15 Assessment and Plan - Assessment and Plan (Free Text) Assessment: 1. Infectious Colitis -Surgery consulted, Dr. Francis. Patient clear from surgical standpoint for discharge home as diarrhea resolved. -Continue Cipro 400 mg IVPB q12h and Flagyl 500 mg IVPB Q8h -Tolerating regular diet -Morphine 2mg IV Q4h PRN and Dilaudid 1mg IVP Q4h PRN for pain control -stool WBCs positive -stool c diff neg -stool culture negative -Stool occult positive- Hgb stable. No hematochezia or melena observed. Last Colonoscopy per pt was 2 years ago, showed polyps. Recommended to patient that she have outpatient GI evaluation for repeat colonoscopy and fecal occult blood -ova/parasites negative -blood cultures x 2 - no growth after 3 days -zofran 4 mg IVP q6h prn for nausea 2. Hx of HTN -continue home medication lisinopril 40mg po daily 3. Hx of HLD -Continue crestor 5 mg PO HS -Gemfibrozil 600 mg po BIDBS 4. GI/DVT ppx -protonix 40 daily -SCDs
[2016-12-05] MEDS: Enoxaparin 40 mg Syringe SC SCH (09:17)
[2016-12-05] MEDS ORDERED: Pantoprazole 40 mg EC Tab PO SCH (10:00)
[2016-12-05 16:09] VITALS: BP 127/87; PULSE 78; TEMP 98.3; O2SAT 98
--- NOTE | 2016-12-05 21:38 | CP.PCM.DIS ---
<Alyssa Payan - Last Filed: 12/05/16 22:00> Provider - Provider Date of Admission: 11/30/16 14:27 Attending physician: Kathleen Green DO Primary care physician: PMD: Dr. Luciano Consults: Surgery: Dr. Francis Time Spent in preparation of Discharge (in minutes): 39 Diagnosis - Discharge Diagnosis (1) Infectious colitis Status: Resolved Comment: see hospital course. (2) HTN (hypertension) Status: Chronic Comment: see hospital course (3) Hyperlipidemia Status: Chronic Comment: see hospital course Hospital Course - Lab Results Lab Results: Micro Results 11/30/16 14:45 Blood Blood Culture - Final NO GROWTH AFTER 5 DAYS 11/30/16 14:45 Blood Gram Stain - Final TEST NOT PERFORMED 11/30/16 15:15 Blood Blood Culture - Final NO GROWTH AFTER 5 DAYS 11/30/16 15:15 Blood Gram Stain - Final TEST NOT PERFORMED 11/30/16 Unknown Rectum Ova and Parasite Concentrate Exam - Final 11/30/16 Unknown Stool Stool Culture - Final NO SALMONELLA, SHIGELLA OR CAMPYLOBACTER ISOLATED. Most Recent Lab Values WBC 5.7 K/uL (4.8-10.8) 12/05/16 06:15 RBC 2.84 Mil/uL (3.80-5.20) L 12/05/16 06:15 Hgb 9.6 g/dL (11.0-16.0) L 12/05/16 06:15 Hct 27.5 % (34.0-47.0) L 12/05/16 06:15 MCV 96.6 fL (81.0-99.0) 12/05/16 06:15 MCH 33.7 pg (27.0-31.0) H 12/05/16 06:15 MCHC 34.9 g/dL (33.0-37.0) 12/05/16 06:15 RDW 13.0 % (11.5-14.5) 12/05/16 06:15 Plt Count 331 K/uL (130-400) 12/05/16 06:15 MPV 7.4 fL (7.2-11.7) 12/05/16 06:15 Neut % (Auto) 43.0 % (50.0-75.0) L 12/05/16 06:15 Lymph % (Auto) 32.9 % (20.0-40.0) 12/05/16 06:15 [place] % (Auto) 17.1 % (0.0-10.0) H 12/05/16 06:15 Eos % (Auto) 6.4 % (0.0-4.0) H 12/05/16 06:15 Baso % (Auto) 0.6 % (0.0-2.0) 12/05/16 06:15 Neut # 2.5 K/uL (1.8-7.0) 12/05/16 06:15 Lymph # 1.9 K/uL (1.0-4.3) 12/05/16 06:15 [place] # 1.0 K/uL (0.0-0.8) H 12/05/16 06:15 Eos # 0.4 K/uL (0.0-0.7) 12/05/16 06:15 Baso # 0.0 K/uL (0.0-0.2) 12/05/16 06:15 Neutrophils % (Manual) 42 % (50-75) L 12/03/16 07:00 Band Neutrophils % 8 % (0-2) H 12/03/16 07:00 Lymphocytes % (Manual) 22 % (20-40) 12/03/16 07:00 Reactive Lymphs % 1 % (0-0) H 11/30/16 11:24 Monocytes % (Manual) 19 % (0-10) H 12/03/16 07:00 Eosinophils % (Manual) 9 % (0-4) H 12/03/16 07:00 Toxic Granulation Present 12/03/16 07:00 Platelet Estimate Normal (NORMAL) 12/03/16 07:00 Plt Clumps, EDTA Present 12/03/16 07:00 Large Platelets Present 12/03/16 07:00 Giant Platelets Present 12/03/16 07:00 Polychromasia Slight 12/03/16 07:00 Hypochromasia (manual) Slight 12/03/16 07:00 Poikilocytosis (manual Slight 11/30/16 11:24 Anisocytosis (manual) Slight 12/03/16 07:00 Sodium 139 mmol/L (132-148) 12/05/16 06:15 Potassium 4.3 mmol/L (3.6-5.2) 12/05/16 06:15 Chloride 108 mmol/L (98-107) H 12/05/16 06:15 Carbon Dioxide 22 mmol/L (22-30) 12/05/16 06:15 Anion Gap 13 (10-20) 12/05/16 06:15 BUN 11 mg/dL (7-17) 12/05/16 06:15 Creatinine 0.8 MG/DL (0.7-1.2) 12/05/16 06:15 Est GFR ( Amer) > 60 12/05/16 06:15 Est GFR (Non-Af Amer) > 60 12/05/16 06:15 POC Glucose (mg/dL) 97 mg/dL (65-110) 11/30/16 21:25 Random Glucose 118 mg/dL (65-105) H 12/05/16 06:15 Calcium 8.3 mg/dl (8.6-10.4) L 12/05/16 06:15 Phosphorus 3.2 mg/dL (2.5-4.5) 12/03/16 07:00 Magnesium 1.4 mg/dL (1.6-2.3) L 12/03/16 07:00 Total Bilirubin 0.6 mg/dL (0.2-1.3) 12/05/16 06:15 AST 82 U/L (14-36) H D 12/05/16 06:15 ALT 50 U/L (9-52) 12/05/16 06:15 Alkaline Phosphatase 77 U/L (38-126) 12/05/16 06:15 Troponin I < 0.0120 ng/mL (0.00-0.120) 12/05/16 12:24 Total Protein 6.3 g/dL (6.3-8.3) 12/05/16 06:15 Albumin 3.3 g/dL (3.5-5.0) L 12/05/16 06:15 Globulin 3.0 gm/dL (2.2-3.9) 12/05/16 06:15 Albumin/Globulin Ratio 1.1 (1.0-2.1) 12/05/16 06:15 Lipase 65 U/L (23-300) 11/30/16 11:24 Urine Color Yellow (YELLOW) 12/03/16 09:07 Urine Clarity Clear (Clear) 12/03/16 09:07 Urine pH 6.0 (5.0-8.0) 12/03/16 09:07 Ur Specific [place] 1.013 (1.003-1.030) 12/03/16 09:07 Urine Protein Negative mg/dL (NEGATIVE) 12/03/16 09:07 Urine Glucose (UA) Normal mg/dL (Normal) 12/03/16 09:07 Urine Ketones Negative mg/dL (NEGATIVE) 12/03/16 09:07 Urine Blood Negative (NEGATIVE) 12/03/16 09:07 Urine Nitrate Negative (NEGATIVE) 12/03/16 09:07 Urine Bilirubin Negative (NEGATIVE) 12/03/16 09:07 Urine Urobilinogen Normal mg/dL (0.2-1.0) 12/03/16 09:07 Ur Leukocyte Esterase Trace Juan M/uL (Negative) 12/03/16 09:07 Urine WBC (Auto) < 1 /hpf (0-5) 12/03/16 09:07 Urine RBC (Auto) 1 /hpf (0-3) 12/03/16 09:07 Ur Squamous Epith Cells 1 /hpf (0-5) 12/03/16 09:07 Hyaline Casts 3-5 /lpf (0-2) H 11/30/16 12:09 Stool Occult Blood Positive (NEGATIVE) H 12/02/16 18:08 Stool Leukocytes, Qual Positive (NEGATIVE) H 11/30/16 Unknown C. difficile Ag & Toxin Negative (NEGATIVE) 12/03/16 09:07 - Hospital Course Hospital Course: On admission: This is a 51 yo female with past medical hx of HTN and HLD and gastritis presenting with abd pain x 2 days. Started gradually 2 days ago after eating BBQ ribs and milk on . Never happened before. No sick contacts, recent travel to . Pain diffuse, squeezing sensation. Getting worse , 10/10. No vomiting, positive nausea. Reports "a lot" of diarrhea, non bloody. Pt is not menstruating any more. Reported fever of 102.7 yesterday. Took Gasx at home with no relief. PMH: HTN, HLD, gastritis PSH: hysterectomy, bunionectomy, knee sx, tubal ligation Allergies: NKDA Current home meds- lisinopril, HCTZ, norvasc, pepcid, gemfibrozil, simvastatin FH: Throat cancer, testicular, stomach, colon cancer all in family Social hx: Current smoker, 6-7 cigs/day. Social drinker, denies drug use. During hospital course the following imaging was done: CT Abd/Pelvis (11/30/16): Colonic wall thickening involving the transverse and left colon; correlate clinically for colitis (see full report). CT abdomen and pelvis without contrast was obtained which indicated colitis. Patient was started on Ciprofloxacin 400 mg IVPB q12h, Flagyl 500 mg IVPB Q8h and IV fluids and initially was made NPO with diet advanced as tolerated. Patient was started on Morphine 2mg IV Q4h PRN and Dilaudid 1mg IVP Q4h PRN for pain control and Zofran for nausea. Surgery, Dr. Francis, was consulted and agreed with medical management of colitis. Stool studies were obtained which indicated stool positive for leukocytes. Stool culture, ova and parasites and c. diff was found to be negative. Stool occult blood was also positive; however , patient's hemoglobin was stable throughout hospital course and no hematochezia or melenic stools were observed. Last Colonoscopy per pt was 2 years ago and showed polyps. It was recommended for patient to have outpatient GI evaluation for repeat colonoscopy and fecal occult blood. Patient's diarrhea resolved and she was tolerating full diet upon discharge. Chronic hypertension and hyperlipidemia were controlled by continuing home medications lisinopril 40 mg po daily and gemfibrozil 600 mg po BIDBS, respectively. Patient was also placed on Crestor (home medication Simvastatin) while in the hospital. Patient also complained of inframammary chest pain, reproducible on palpation. Troponin I was obtained and found negative and EKG showed no acute changes. Prophylaxis included protonix 40 mg po daily, florastor 250 mg po BID, and SCDs. Discharge Instructions: Patient medically stable for discharge home. Patient instructed to continue taking home medications. Patient instructed to take the following new prescription medications: Ciprofloxacin 500 mg by mouth twice daily for 5 days Flagyl 500 mg by mouth twice daily for 5 days Patient instructed to not drink alcohol while taking antibiotics. Patient also instructed to eat yogurt daily for two weeks to protect gut vinnie. Patient instructed to follow-up in [facility] within one week of discharge for hospital for care and post-hospitalization follow-up. Patient instructed to follow-up with gastroenterology for repeat colonoscopy. Patient instructed to return to the emergency department if symptoms recur. Patient given detailed instructions at bedside. Patient understands and agrees. - Date & Time of H&P Date of H&P: 11/30/16 Time of H&P: 15:23 Discharge Exam - Head Exam Head Exam: ATRAUMATIC, NORMAL INSPECTION, NORMOCEPHALIC - Eye Exam Eye Exam: EOMI, Normal appearance Pupil Exam: PERRL - ENT Exam ENT Exam: Mucous Membranes Moist - Neck Exam Neck exam: Full Rom, Normal Inspection - Respiratory Exam Respiratory Exam: Chest Wall Tenderness, Clear to PA & Lateral, NORMAL BREATHING PATTERN, UNREMARKABLE. absent: Rales, Rhonchi, Wheezes - Cardiovascular Exam Cardiovascular Exam: +S1, +S2. absent: Bradycardia, Tachycardia - GI/Abdominal Exam GI & Abdominal Exam: Hypoactive Bowel Sounds, Soft. absent: Firm, Guarding, Tenderness - Extremities Exam Extremities exam: full ROM, normal capillary refill, normal inspection, pedal pulses present - Back Exam Back exam: absent: CVA tenderness (L), CVA tenderness (R), vertebral tenderness - Neurological Exam Neurological exam: Alert, CN II-XII Intact, Oriented x3 - Psychiatric Exam Psychiatric exam: Normal Affect, Normal Mood - Skin Skin Exam: Dry, Intact, Normal Color, Warm Discharge Plan - Discharge Medications Prescriptions: Ciprofloxacin [Cipro] 500 mg PO BID #10 tab Metronidazole [Flagyl] 500 mg PO BID #10 tablet Simvastatin 20 mg PO DAILY #30 tablet - Follow Up Plan Condition: STABLE Disposition: HOME/ ROUTINE Instructions: Ciprofloxacin (By mouth), Metronidazole (By mouth), Simvastatin ( By mouth), How to Stop Smoking (DC), Cigarette Smoking and Your Health (GEN), Colitis (ED) Additional Instructions: Patient medically stable for discharge home. Patient instructed to continue taking home medications. Patient instructed to take the following new prescription medications: Ciprofloxacin 500 mg by mouth twice daily for 5 days Flagyl 500 mg by mouth twice daily for 5 days Patient instructed to not drink alcohol while taking antibiotics. Patient also instructed to eat yogurt daily for two weeks to protect gut vinnie. Patient instructed to follow-up in [facility] within one week of discharge for hospital for care and post-hospitalization follow-up. Patient instructed to follow-up with gastroenterology for repeat colonoscopy. Patient instructed to return to the emergency department if symptoms recur. Patient given detailed instructions at bedside. Patient understands and agrees. Referrals: Josse Valladares MD [Staff Provider] - Jana Luciano MD [Staff Provider] - <Kathleen Green V - Last Filed: 12/05/16 22:46> Provider - Provider Date of Admission: 11/30/16 14:27 Attending physician: Kathleen Green DO Hospital Course - Lab Results Lab Results: Micro Results 11/30/16 14:45 Blood Blood Culture - Final NO GROWTH AFTER 5 DAYS 11/30/16 14:45 Blood Gram Stain - Final TEST NOT PERFORMED 11/30/16 15:15 Blood Blood Culture - Final NO GROWTH AFTER 5 DAYS 11/30/16 15:15 Blood Gram Stain - Final TEST NOT PERFORMED 11/30/16 Unknown Rectum Ova and Parasite Concentrate Exam - Final 11/30/16 Unknown Stool Stool Culture - Final NO SALMONELLA, SHIGELLA OR CAMPYLOBACTER ISOLATED. Most Recent Lab Values WBC 5.7 K/uL (4.8-10.8) 12/05/16 06:15 RBC 2.84 Mil/uL (3.80-5.20) L 12/05/16 06:15 Hgb 9.6 g/dL (11.0-16.0) L 12/05/16 06:15 Hct 27.5 % (34.0-47.0) L 12/05/16 06:15 MCV 96.6 fL (81.0-99.0) 12/05/16 06:15 MCH 33.7 pg (27.0-31.0) H 12/05/16 06:15 MCHC 34.9 g/dL (33.0-37.0) 12/05/16 06:15 RDW 13.0 % (11.5-14.5) 12/05/16 06:15 Plt Count 331 K/uL (130-400) 12/05/16 06:15 MPV 7.4 fL (7.2-11.7) 12/05/16 06:15 Neut % (Auto) 43.0 % (50.0-75.0) L 12/05/16 06:15 Lymph % (Auto) 32.9 % (20.0-40.0) 12/05/16 06:15 [place] % (Auto) 17.1 % (0.0-10.0) H 12/05/16 06:15 Eos % (Auto) 6.4 % (0.0-4.0) H 12/05/16 06:15 Baso % (Auto) 0.6 % (0.0-2.0) 12/05/16 06:15 Neut # 2.5 K/uL (1.8-7.0) 12/05/16 06:15 Lymph # 1.9 K/uL (1.0-4.3) 12/05/16 06:15 [place] # 1.0 K/uL (0.0-0.8) H 12/05/16 06:15 Eos # 0.4 K/uL (0.0-0.7) 12/05/16 06:15 Baso # 0.0 K/uL (0.0-0.2) 12/05/16 06:15 Neutrophils % (Manual) 42 % (50-75) L 12/03/16 07:00 Band Neutrophils % 8 % (0-2) H 12/03/16 07:00 Lymphocytes % (Manual) 22 % (20-40) 12/03/16 07:00 Reactive Lymphs % 1 % (0-0) H 11/30/16 11:24 Monocytes % (Manual) 19 % (0-10) H 12/03/16 07:00 Eosinophils % (Manual) 9 % (0-4) H 12/03/16 07:00 Toxic Granulation Present 12/03/16 07:00 Platelet Estimate Normal (NORMAL) 12/03/16 07:00 Plt Clumps, EDTA Present 12/03/16 07:00 Large Platelets Present 12/03/16 07:00 Giant Platelets Present 12/03/16 07:00 Polychromasia Slight 12/03/16 07:00 Hypochromasia (manual) Slight 12/03/16 07:00 Poikilocytosis (manual Slight 11/30/16 11:24 Anisocytosis (manual) Slight 12/03/16 07:00 Sodium 139 mmol/L (132-148) 12/05/16 06:15 Potassium 4.3 mmol/L (3.6-5.2) 12/05/16 06:15 Chloride 108 mmol/L (98-107) H 12/05/16 06:15 Carbon Dioxide 22 mmol/L (22-30) 12/05/16 06:15 Anion Gap 13 (10-20) 12/05/16 06:15 BUN 11 mg/dL (7-17) 12/05/16 06:15 Creatinine 0.8 MG/DL (0.7-1.2) 12/05/16 06:15 Est GFR ( Amer) > 60 12/05/16 06:15 Est GFR (Non-Af Amer) > 60 12/05/16 06:15 POC Glucose (mg/dL) 97 mg/dL (65-110) 11/30/16 21:25 Random Glucose 118 mg/dL (65-105) H 12/05/16 06:15 Calcium 8.3 mg/dl (8.6-10.4) L 12/05/16 06:15 Phosphorus 3.2 mg/dL (2.5-4.5) 12/03/16 07:00 Magnesium 1.4 mg/dL (1.6-2.3) L 12/03/16 07:00 Total Bilirubin 0.6 mg/dL (0.2-1.3) 12/05/16 06:15 AST 82 U/L (14-36) H D 12/05/16 06:15 ALT 50 U/L (9-52) 12/05/16 06:15 Alkaline Phosphatase 77 U/L (38-126) 12/05/16 06:15 Troponin I < 0.0120 ng/mL (0.00-0.120) 12/05/16 12:24 Total Protein 6.3 g/dL (6.3-8.3) 12/05/16 06:15 Albumin 3.3 g/dL (3.5-5.0) L 12/05/16 06:15 Globulin 3.0 gm/dL (2.2-3.9) 12/05/16 06:15 Albumin/Globulin Ratio 1.1 (1.0-2.1) 12/05/16 06:15 Lipase 65 U/L (23-300) 11/30/16 11:24 Urine Color Yellow (YELLOW) 12/03/16 09:07 Urine Clarity Clear (Clear) 12/03/16 09:07 Urine pH 6.0 (5.0-8.0) 12/03/16 09:07 Ur Specific [place] 1.013 (1.003-1.030) 12/03/16 09:07 Urine Protein Negative mg/dL (NEGATIVE) 12/03/16 09:07 Urine Glucose (UA) Normal mg/dL (Normal) 12/03/16 09:07 Urine Ketones Negative mg/dL (NEGATIVE) 12/03/16 09:07 Urine Blood Negative (NEGATIVE) 12/03/16 09:07 Urine Nitrate Negative (NEGATIVE) 12/03/16 09:07 Urine Bilirubin Negative (NEGATIVE) 12/03/16 09:07 Urine Urobilinogen Normal mg/dL (0.2-1.0) 12/03/16 09:07 Ur Leukocyte Esterase Trace Juan M/uL (Negative) 12/03/16 09:07 Urine WBC (Auto) < 1 /hpf (0-5) 12/03/16 09:07 Urine RBC (Auto) 1 /hpf (0-3) 12/03/16 09:07 Ur Squamous Epith Cells 1 /hpf (0-5) 12/03/16 09:07 Hyaline Casts 3-5 /lpf (0-2) H 11/30/16 12:09 Stool Occult Blood Positive (NEGATIVE) H 12/02/16 18:08 Stool Leukocytes, Qual Positive (NEGATIVE) H 11/30/16 Unknown C. difficile Ag & Toxin Negative (NEGATIVE) 12/03/16 09:07 Attending/Attestation - Attestation I have personally seen and examined this patient.: Yes I have fully participated in the care of the patient.: Yes I have reviewed all pertinent clinical information, including history, physical exam and plan: Yes Notes (Text): Patient seen, examined, and case discussed with day-time resident. Patient reports she feeling better. Patient reports her stool is becoming more formed and diarrhea improved significantly compared on admission. Discussed with general surgery, patient is stable from their standpoint. Patient advised to advance diet as tolerated and refrain from greasy heavy food , suggesting for BRAT type diet and as she recovers from the colitis. Patient recommended to follow-up with the [facility] which she reports she is an established patient of and recommended to follow-up for colonoscopy given positive stool occult blood, and has not had a prior screening colonoscopy. Discharge order and discharge instructions with patient and day-time resident. Patient medically stable for discharge home. Patient instructed to continue taking home medications. Patient instructed to take the following new prescription medications: Ciprofloxacin 500 mg by mouth twice daily for 5 days Flagyl 500 mg by mouth twice daily for 5 days Patient instructed to not drink alcohol while taking antibiotics. Patient also instructed to eat yogurt daily for two weeks to protect gut vinnie. Patient instructed to follow-up in [facility] within one week of discharge for hospital for care and post-hospitalization follow-up. Patient instructed to follow-up with gastroenterology for repeat colonoscopy. Patient instructed to return to the emergency department if symptoms recur. Patient given detailed instructions at bedside. Patient understands and agrees. This is a summary of patient's hospitalization. Please see EMR for further details.
== END 2016-12-05 18:40 | disposition home or self-care (01) | DRG 814 ==
LOC: C.ER 10:57 → C.9E 14:27 → C.3T 15:24
PROVIDERS: ADMIT Hospitalist; ATTEND Hospitalist
DX: A09 Infectious gastroenteritis and colitis, unspecified (principal); I10 Essential (primary) hypertension; E11.9 Type 2 diabetes mellitus without complications; D72.825 Bandemia; E78.5 Hyperlipidemia, unspecified; F17.200 Nicotine dependence, unspecified, uncomplicated; E78.00 Pure hypercholesterolemia, unspecified; J45.909 Unspecified asthma, uncomplicated; K29.70 Gastritis, unspecified, without bleeding; K21.9 Gastro-esophageal reflux disease without esophagitis; Z80.8 Family history of malignant neoplasm of other organs or systems; Z80.0 Family history of malignant neoplasm of digestive organs; Z86.010 Personal history of colon polyps; Z79.899 Other long term (current) drug therapy; Z82.3 Family history of stroke

== ENCOUNTER 2017-06-06 10:59 | Emergency (ER) | payer SELFPAY ==
[2017-06-06 10:59] VITALS: BMI 30.9
--- NOTE | 2017-06-06 12:10 | C.PDOC ---
History Of Present Illness 52yo female, with history of hypertension, high cholesterol, presents to ED for evaluation of hip pain, worsening over the past 3 weeks. Patient also states she has a history of chronic back pain and was evaluated by her PCP 3 weeks ago for the hip pain; states she was instructed to do "some stretches" but has not had any relief. Additionally reports her pain radiates down her legs to her knee. She denies any trauma, injury, weakness, numbness, fever, chills. No other medical complaints. Time Seen by Provider: 06/06/17 12:05 Chief Complaint (Nursing): Lower Extremity Problem/Injury History Per: Patient History/Exam Limitations: no limitations Onset/Duration Of Symptoms: Persistent Current Symptoms Are (Timing): Still Present Severity: Moderate Past Medical History Reviewed: Historical Data, Nursing Documentation, Vital Signs Vital Signs: Last Vital Signs Temp 98.1 F 06/06/17 11:17 Pulse 87 06/06/17 11:17 Resp 16 06/06/17 11:17 BP 125/85 06/06/17 11:17 Pulse Ox 96 06/06/17 12:31 - Medical History PMH: Anxiety, Asthma, Depression, Diabetes, HTN, Hypercholesterolemia Denies: Chronic Kidney Disease Surgical History: No Surg Hx - [facility] Procedures CLOSURE SKIN & SUBCUTANEOUS NEC (12/13/13) CRUCIATE LIG REPAIR NEC (07/18/13) ENDOSCOPIC BIOPSY OF RECTUM (05/15/13) EXCIS KNEE SEMILUN CARTL (07/18/13) KNEE SYNOVECTOMY (07/18/13) Family History: States: Stroke - Social History Hx Tobacco Use: Yes Hx Alcohol Use: Yes Hx Substance Use: No - Immunization History Hx Tetanus Toxoid Vaccination: Yes Hx Influenza Vaccination: No Hx Pneumococcal Vaccination: No Review Of Systems Musculoskeletal: Positive for: Leg Pain (radiating from hip), Other (bilateral hip pain) Neurological: Negative for: Weakness, Numbness Physical Exam - Physical Exam Appears: Non-toxic, Other (uncomfortable) Neck: Supple Back: Other (left hip tenderness to palpation) Extremity: Normal ROM, No Deformity, No Swelling ED Course And Treatment O2 Sat by Pulse Oximetry: 96 (RA) Pulse Ox Interpretation: Normal Medical Decision Making Medical Decision Making: Impression: Hip pain, arthritis Plan: -- CT Lower extremity w/o contrast Disposition Counseled Patient/Family Regarding: Studies Performed, Diagnosis, Need For Followup, Rx Given - Disposition Referrals: [facility] [Outside] Disposition: HOME/ ROUTINE Disposition Time: 15:47 Condition: STABLE Additional Instructions: Follow with your doctor or our clinic. Prescriptions: Cyclobenzaprine [Cyclobenzaprine HCl] 10 mg PO TID #12 tab Ibuprofen [Motrin] 600 mg PO TID #15 tab Forms: [facility] (Lao), General Discharge Instructions - POA Present On Arrival: None - Clinical Impression Clinical Impression: Arthritis, Joint pain - Scribe Statement The provider has reviewed the documentation as recorded by the Diego Lozoya Provider Attestation: All medical record entries made by the Diego were at my direction and personally dictated by me. I have reviewed the chart and agree that the record accurately reflects my personal performance of the history, physical exam, medical decision making, and the department course for this patient. I have also personally directed, reviewed, and agree with the discharge instructions and disposition.
[2017-06-06] MEDS ORDERED: Lidocaine 5% Patch TD STA (12:42)
[2017-06-06] MEDS ORDERED: Lidocaine 5% Patch TD ONE (13:12)
--- NOTE | 2017-06-06 13:49 | CT ---
CT left hip History: Pain. No trauma. Comparison: None available. Technique: Multiple contiguous axial images were performed through the left hip without the use of intravenous contrast. Subsequently, sagittal and coronal reformatted images were obtained. This CT exam was performed using one or more of the following dose reduction techniques: Automated exposure control, adjustment of the mA and/or kV according to patient size, and/or use of iterative reconstruction technique. Findings: Left hip: Mild narrowing of the left hip joint space with some subchondral sclerosis. Prominent bony productive change and or heterotopic bone formation adjacent to greater tuberosity of the left proximal femur which may be related to some underlying degenerative change versus calcific tendinopathy of the gluteus tendon attachments on the greater trochanter. Anterior to left greater trochanter and posterior to the base of the left femoral neck, there are some lobulated radiopaque densities measuring up to 7 and 8 millimeters which may represent heterotopic bone versus prominent osteophytosis versus loose osteochondral bodies versus synovial debris and or hypertrophy. Correlation with MRI may be helpful if clinically indicated to better evaluate this region. Mild productive change at the left hamstring tendon origins. Limited evaluation of the remainder of the bony pelvis demonstrates prominent sclerosis at the inferior aspect of the left SI joint, nonspecific. Mild productive change with heterotopic bone formation at the pubic symphysis which may represent some developing osteitis pubis. Incidentally noted is 3.6 centimeter cyst at the level of the left ovary. Correlation with pelvic ultrasound may be helpful if clinically indicated. Impression: 1. Mild narrowing of the left hip joint space with some subchondral sclerosis. 2. Prominent bony productive change and or heterotopic bone formation adjacent to greater tuberosity of the left proximal femur which may be related to some underlying degenerative change versus calcific tendinopathy of the gluteus tendon attachments on the greater trochanter. 3. Anterior to left greater trochanter and posterior to the base of the left femoral neck, there are some lobulated radiopaque densities measuring up to 7 and 8 millimeters which may represent heterotopic bone versus prominent osteophytosis versus loose osteochondral bodies versus synovial debris and or hypertrophy. Correlation with MRI may be helpful if clinically indicated to better evaluate this region. 4. Mild productive change at the left hamstring tendon origins. 5. Limited evaluation of the remainder of the bony pelvis demonstrates prominent sclerosis at the inferior aspect of the left SI joint, nonspecific. 6. Mild productive change with heterotopic bone formation at the pubic symphysis which may represent some developing osteitis pubis. 7. Incidentally noted is 3.6 centimeter cyst at the level of the left ovary. Correlation with pelvic ultrasound may be helpful if clinically indicated.
[2017-06-06 15:56] VITALS: RESP 18; O2SAT 97
[2017-06-06 15:57] VITALS: BP 112/77; PULSE 74; TEMP 97.3
== END 2017-06-06 15:57 | disposition home or self-care (01) ==
LOC: C.ER 10:59
DX: M13.852 Other specified arthritis, left hip (principal); M25.552 Pain in left hip
CPT/HCPCS: 73700; 96372; 99284; J1885

== ENCOUNTER 2017-06-08 19:23 | Emergency (ER) | payer SELFPAY ==
[2017-06-08 19:23] VITALS: BMI 30.9
[2017-06-08 19:30] VITALS: BP 118/76; PULSE 100; RESP 20; TEMP 97.7; O2SAT 99
[2017-06-08] MEDS ORDERED: MethylPREDNISolone 40 mg Vial IM STA (20:11)
--- NOTE | 2017-06-08 21:06 | C.PDOC ---
History Of Present Illness 52yo female, presents to ED for evaluation of left sided lower back pain, radiating to her left hip and left leg for the past 4 days. Patient states she was seen in the ER 2 days ago and given prescriptions for Ibuprofen and Flexeril which she is taking but with minimal relief of her symptoms. She reports visiting today due to continued pain and states the pain was so bad today that she lost her balance and fell. She also states she feels as if her "hip is out of balance." She denies any numbness, tingling, fever or chills. Time Seen by Provider: 06/08/17 19:38 Chief Complaint (Nursing): Hip Pain History Per: Patient History/Exam Limitations: no limitations Onset/Duration Of Symptoms: Days Current Symptoms Are (Timing): Worse Recent travel outside of the [place]: No Additional History Per: Patient Past Medical History Reviewed: Historical Data, Nursing Documentation, Vital Signs Vital Signs: Last Vital Signs Temp 97.7 F 06/08/17 19:25 Pulse 100 H 06/08/17 19:25 Resp 20 06/08/17 19:25 BP 118/76 06/08/17 19:25 Pulse Ox 99 06/08/17 21:39 - Medical History PMH: Anxiety, Asthma, Depression, Diabetes, HTN, Hypercholesterolemia Denies: Chronic Kidney Disease Surgical History: No Surg Hx - [facility] Procedures CLOSURE SKIN & SUBCUTANEOUS NEC (12/13/13) CRUCIATE LIG REPAIR NEC (07/18/13) ENDOSCOPIC BIOPSY OF RECTUM (05/15/13) EXCIS KNEE SEMILUN CARTL (07/18/13) KNEE SYNOVECTOMY (07/18/13) Family History: States: Stroke - Social History Hx Tobacco Use: Yes Hx Alcohol Use: Yes Hx Substance Use: No - Immunization History Hx Tetanus Toxoid Vaccination: No Hx Influenza Vaccination: No Hx Pneumococcal Vaccination: No Review Of Systems Constitutional: Negative for: Fever, Chills, Weakness, Malaise Cardiovascular: Negative for: Chest Pain, Palpitations, Edema Respiratory: Negative for: Cough, Shortness of Breath Gastrointestinal: Negative for: Nausea, Vomiting, Abdominal Pain Genitourinary: Negative for: Dysuria, Frequency, Hematuria Musculoskeletal: Positive for: Back Pain, Other (hip pain). Negative for: Neck Pain Skin: Negative for: Rash, Lesions, Jaundice Neurological: Negative for: Weakness, Numbness Physical Exam - Physical Exam Appears: Well, Non-toxic, In Acute Distress (in mild to morderate painful distress) Skin: Normal Color, Warm, Dry, No Rash Head: Atraumatic, Normacephalic Eye(s): bilateral: Normal Inspection Nose: Normal Neck: Normal, Normal ROM, Supple Cardiovascular: Rhythm Regular, No Murmur Respiratory: Normal Breath Sounds, No Decreased Breath Sounds, No Accessory Muscle Use, No Rales, No Rhonchi, No Wheezing Gastrointestinal/Abdominal: Soft, No Tenderness, No Guarding Back: Normal Inspection, No CVA Tenderness, No Vertebral Tenderness, Paraspinal Tenderness (left paralumbar area) Extremity: Normal ROM (left hip), Tenderness (left hip tenderness), No Deformity , No Swelling Pulses: Left Dorsalis Pedis: Normal, Right Dorsalis Pedis: Normal Neurological/Psych: Oriented x3, Normal Cranial Nerves, Normal Motor, Normal Sensation ED Course And Treatment O2 Sat by Pulse Oximetry: 99 (RA) Pulse Ox Interpretation: Normal - Other Rad XR L hip X-Ray: Interpreted by Me Interpretation: no fracture, no dislocation Medical Decision Making Medical Decision Making: Impression: Hip pain Plan: -- Flexeril 10 mg po -- Solumedrol 125 mg PO -- Tramadol 50 mg PO -- Toradol 60 mg IM -- XR Hips Time: 2115 On re-evaluation, patient reports significant improvement of pain. Patient stable for discharge home, informed to follow up with PCP in 1-2 days without fail. Disposition Counseled Patient/Family Regarding: Studies Performed, Diagnosis, Need For Followup, Rx Given - Disposition Disposition: HOME/ ROUTINE Disposition Time: 21:00 Condition: GOOD Additional Instructions: Follow up with your pmd in 1-2 days for further evaluation without fail. Take medication as prescribed. Return to the ER at any time for any new or worsening symptoms. 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 - Scribe Statement The provider has reviewed the documentation as recorded by the Diego Lozoya Provider Attestation: All medical record entries made by the Humzaibrylee were at my direction and personally dictated by me. I have reviewed the chart and agree that the record accurately reflects my personal performance of the history, physical exam, medical decision making, and the department course for this patient. I have also personally directed, reviewed, and agree with the discharge instructions and disposition.
--- NOTE | 2017-06-09 08:52 | RAD ---
Indication: Pain, fall Left hip with pelvis Comparison: Left hip with pelvis radiographs performed 04/28/17 Findings: No changes. Joint space narrowing bilaterally. No acute displaced fracture or dislocation identified. Sacroiliac joints appear intact. Pelvic calcifications, likely phleboliths. Soft tissues appear unremarkable. No evidence of radiopaque foreign body. Impression: No acute displaced fracture or dislocation evident. If high clinical index of suspicion, suggest cross-sectional imaging for further evaluation. Otherwise, if symptoms persist or if there is continued clinical concern, x-ray follow-up in 7-10 days should be considered.
== END 2017-06-08 21:16 | disposition home or self-care (01) ==
LOC: C.ER 19:23
DX: M54.32 Sciatica, left side (principal)
CPT/HCPCS: 73502; 96372; 99284; J1885; J2920

== ENCOUNTER 2018-05-04 15:45 | Emergency (ER) | payer OTHER ==
[2018-05-04 15:46] VITALS: BMI 30.9
[2018-05-04 15:52] VITALS: BP 158/99; PULSE 107; RESP 18; TEMP 98.7; O2SAT 97
[2018-05-04] MEDS ORDERED: Naproxen 550 mg Tab PO STA (15:58)
[2018-05-04] MEDS ORDERED: Naproxen 550 mg Tab PO ONE (16:11)
--- NOTE | 2018-05-04 16:20 | RAD ---
Date of service: 05/04/2018 PROCEDURE: Right Wrist Radiographs. HISTORY: pain COMPARISON: None. FINDINGS: BONES: Bone alignment and mineralization are normal. There is no acute displaced fracture or bone destruction. JOINTS: There is severe degenerative osteoarthrosis in the 1st FPC joint with reduced joint space, marginal spurring and subarticular cystic changes and erosion. The intercarpal joint spaces are preserved. The radiocarpal joint is normal. SOFT TISSUES: Normal. OTHER FINDINGS: None. IMPRESSION: Severe degenerative osteoarthrosis in the 1st FPC joint. No acute fracture or dislocation.
--- NOTE | 2018-05-04 16:24 | C.PDOC ---
History Of Present Illness 53 year old female with history of carpal tunnel syndrome complains of right wrist pain. She was seen by her neurologist who recommended surgery but the patient decided she did not want it. She notes swelling on the wrist and the pain worsens with movement. Patient takes Gabapentin for the pain but feels no relief. Denies any weakness, numbness, fever and chills. Time Seen by Provider: 05/04/18 15:53 Chief Complaint (Nursing): Upper Extremity Problem/Injury History Per: Patient History/Exam Limitations: no limitations Onset/Duration Of Symptoms: Days Current Symptoms Are (Timing): Still Present Exacerbating Factor(s): Movement Recent travel outside of the [place]: No Past Medical History Reviewed: Historical Data, Nursing Documentation, Vital Signs Vital Signs: Last Vital Signs Temp 98.7 F 05/04/18 15:49 Pulse 107 H 05/04/18 15:49 Resp 18 05/04/18 15:49 BP 158/99 H 05/04/18 15:49 Pulse Ox 97 05/04/18 15:49 - Medical History PMH: Anxiety, Asthma, Depression, Diabetes, HTN, Hypercholesterolemia Denies: Chronic Kidney Disease - [facility] Procedures CLOSURE SKIN & SUBCUTANEOUS NEC (12/13/13) CRUCIATE LIG REPAIR NEC (07/18/13) ENDOSCOPIC BIOPSY OF RECTUM (05/15/13) EXCIS KNEE SEMILUN CARTL (07/18/13) KNEE SYNOVECTOMY (07/18/13) Family History: States: Stroke - Social History Hx Tobacco Use: Yes Hx Alcohol Use: Yes Hx Substance Use: No - Immunization History Hx Tetanus Toxoid Vaccination: No Hx Influenza Vaccination: No Hx Pneumococcal Vaccination: No Review Of Systems Constitutional: Negative for: Fever, Chills Musculoskeletal: Positive for: Hand Pain (right wrist pain ) Neurological: Negative for: Weakness, Numbness Physical Exam - Physical Exam Appears: Well, Non-toxic, No Acute Distress Skin: Normal Color, Warm, Dry Head: Normacephalic Eye(s): bilateral: Normal Inspection Oral Mucosa: Moist Neck: Normal ROM, Supple Cardiovascular: Rhythm Regular, No Friction Rub, No Murmur Respiratory: Normal Breath Sounds, No Rales, No Rhonchi, No Wheezing Gastrointestinal/Abdominal: Normal Exam, Soft, No Tenderness, No Guarding, No Rebound Extremity: Normal ROM (in fingers ), Tenderness (diffusely tender right wrist ), Swelling (minimal ) Pulses: Left Radial: Normal, Right Radial: Normal Neurological/Psych: Oriented x3, Normal Speech, Normal Cognition Gait: Steady ED Course And Treatment O2 Sat by Pulse Oximetry: 97 (RA) Pulse Ox Interpretation: Normal - Other Rad Right wrist XR X-Ray: Interpreted by Me, Read By Radiologist Interpretation: Date of service: 05/04/2018. PROCEDURE: Right Wrist Radiogr aphs. . HISTORY: pain. COMPARISON: None. FINDINGS: BONES: Bone alignment and mineralization are normal. There is no acute displaced fracture or bone destruction. JOINTS: There is severe degenerative osteoarthrosis in the 1st CUSTODIAL joint with reduced joint space, marginal spurring and subarticular cystic changes and erosion. The intercarpal joint spaces are preserved. The radiocarpal joint is normal. SOFT TISSUES: Normal. OTHER FINDINGS: None. IMPRESSION: Severe degenerative osteoarthrosis in the 1st CUSTODIAL joint. No acute fracture or dislocation. Progress Note: Treated with naproxen 500 MG. Splint applied. Discharged in stable condition Reassessment Condition: Improved Medical Decision Making Medical Decision Making: Impression: 53 year old female with history of carpal tunnel syndrome complains of right wrist pain. Plan: -Naproxen 550mg PO -Right Wrist X-ray Progress/updates: Naproxen administered. Right wrist X-ray ordered. 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 - Scribe Statement The provider has reviewed the documentation as recorded by the Scribe (Tete Cline) All medical record entries made by the Scribe were at my direction and personally dictated by me. I have reviewed the chart and agree that the record accurately reflects my personal performance of the history, physical exam, medical decision making, and the department course for this patient. I have also personally directed, reviewed, and agree with the discharge instructions and disposition.
== END 2018-05-04 17:17 | disposition home or self-care (01) ==
LOC: C.ER 15:45
DX: G56.01 Carpal tunnel syndrome, right upper limb (principal)

== ENCOUNTER 2018-11-28 15:53 | Emergency (ER) | payer OTHER ==
[2018-11-28 15:53] VITALS: BMI 30.9
[2018-11-28 16:23] VITALS: PULSE 88; TEMP 98.7; O2SAT 97
--- NOTE | 2018-11-28 17:01 | C.PDOC ---
History Of Present Illness 53 year old female presents to the emergency department status-post "covering the tang bourgeois yesterday" and noticing diffuse mosquito bites to her right arm. Patient states that she started scratching them, but today noticed swelling and redness to her right elbow. She denies fever, chills, shortness of breath, throat swelling, tongue swelling, lip swelling, chest pain, and palpitations. Time Seen by Provider: 11/28/18 16:40 Chief Complaint (Nursing): Abnormal Skin Integrity History Per: Patient History/Exam Limitations: no limitations Onset/Duration Of Symptoms: Days (1) Current Symptoms Are (Timing): Still Present Location Of Injury: Right: Elbow Quality Of Symptoms: Itching, Swollen - Animal Bite Description Of The Attack: Other (mosquito bite) Past Medical History Reviewed: Historical Data, Nursing Documentation, Vital Signs Vital Signs: Last Vital Signs Temp 98.7 F 11/28/18 16:17 Pulse 88 11/28/18 16:17 Resp 18 11/28/18 16:17 BP 190/106 H 11/28/18 16:17 Pulse Ox 97 11/28/18 16:17 Primary Care Provider: Rocio Solorzano - Medical History PMH: Anxiety, Asthma, Depression, Diabetes, HTN, Hypercholesterolemia Denies: Chronic Kidney Disease Surgical History: No Surg Hx - [facility] Procedures CLOSURE SKIN & SUBCUTANEOUS NEC (12/13/13) CRUCIATE LIG REPAIR NEC (07/18/13) ENDOSCOPIC BIOPSY OF RECTUM (05/15/13) EXCIS KNEE SEMILUN CARTL (07/18/13) KNEE SYNOVECTOMY (07/18/13) Family History: States: Stroke - Social History Hx Tobacco Use: Yes Hx Alcohol Use: Yes Hx Substance Use: No - Immunization History Hx Tetanus Toxoid Vaccination: No Hx Influenza Vaccination: No Hx Pneumococcal Vaccination: No Review Of Systems Constitutional: Negative for: Fever, Chills, Weakness ENT: Negative for: Throat Pain, Throat Swelling Cardiovascular: Negative for: Chest Pain, Palpitations Respiratory: Negative for: Cough, Shortness of Breath Gastrointestinal: Negative for: Nausea, Vomiting, Abdominal Pain, Diarrhea Musculoskeletal: Positive for: Arm Pain (right elbow) Neurological: Negative for: Weakness, Numbness Physical Exam - Physical Exam Appears: Non-toxic, No Acute Distress Skin: No Normal Color, Warm, Dry, Other (large area of erythema to the right elbow, well demarcated. NO streaking up the right arm.) Head: Atraumatic, Normacephalic Eye(s): bilateral: Normal Inspection Nose: Normal Oral Mucosa: Moist Tongue: Normal Appearing, No Swelling Lips: Normal Appearing, No Swelling Throat: Normal, No Erythema, No Exudate, No Mass Neck: Normal, Supple Chest: Symmetrical, No Tenderness Extremity: Normal ROM (Full ROM at the right elbow), No Tenderness, Capillary Refill <2 Sec, Swelling (mild swelling to the right elbow) Pulses: Left Radial: Normal, Right Radial: Normal Neurological/Psych: Oriented x3, Normal Speech, Normal Cognition, Normal Motor, Normal Sensation ED Course And Treatment O2 Sat by Pulse Oximetry: 97 (RA) Pulse Ox Interpretation: Normal Medical Decision Making Medical Decision Making: Erythema was demarcated with a skin marker. Patient to be started on Keflex, and follow-up with Dr. Rocio Dia. Patient also reports elevated blood pressure, states that she has not taken her b/p medications in 2 months due to losing insurance. 17:05 Patient confirms speaking with her pharmacy, will receive a refill for b/p meds. Disposition - Disposition - Scribe Statement The provider has reviewed the documentation as recorded by the Scribe (Luke Ash) Provider Attestation: All medical record entries made by the Scribe were at my direction and personally dictated by me. I have reviewed the chart and agree that the record accurately reflects my personal performance of the history, physical exam, medical decision making, and the department course for this patient. I have also personally directed, reviewed, and agree with the discharge instructions and disposition.
--- NOTE | 2018-11-28 17:09 | C.PDOC ---
Time Seen by Provider: 11/28/18 16:40 Chief Complaint (Nursing): Abnormal Skin Integrity Past Medical History Vital Signs: Last Vital Signs Temp 98.7 F 11/28/18 16:17 Pulse 88 11/28/18 16:17 Resp 18 11/28/18 16:17 BP 190/106 H 11/28/18 16:17 Pulse Ox 97 11/28/18 16:17 Primary Care Provider: Rocio Solorzano - Medical History PMH: Anxiety, Asthma, Depression, Diabetes, HTN, Hypercholesterolemia Denies: Chronic Kidney Disease - [facility] Procedures CLOSURE SKIN & SUBCUTANEOUS NEC (12/13/13) CRUCIATE LIG REPAIR NEC (07/18/13) ENDOSCOPIC BIOPSY OF RECTUM (05/15/13) EXCIS KNEE SEMILUN CARTL (07/18/13) KNEE SYNOVECTOMY (07/18/13) Family History: States: Stroke - Social History Hx Tobacco Use: Yes Hx Alcohol Use: Yes Hx Substance Use: No - Immunization History Hx Tetanus Toxoid Vaccination: No Hx Influenza Vaccination: No Hx Pneumococcal Vaccination: No ED Course And Treatment O2 Sat by Pulse Oximetry: 97 Disposition Counseled Patient/Family Regarding: Diagnosis, Need For Followup, Rx Given - Disposition Referrals: Rocio Solorznao MD [Staff Provider] - Disposition: HOME/ ROUTINE Condition: STABLE Prescriptions: amLODIPine [Norvasc] 5 mg PO DAILY #30 tab Cephalexin [cephalexin] 500 mg PO QID #28 cap Gabapentin [Neurontin] 600 mg PO BID #60 tablet hydroCHLOROthiazide [Hydrodiuril] 25 mg PO DAILY #30 tab Lisinopril [Zestril] 40 mg PO DAILY #30 tab Omeprazole 40 mg PO DAILY #30 tab Instructions: Insect Bites and Stings (DC), Cellulitis (Skin Infection), Adult (DC), High Blood Pressure (DC) Forms: [employer] [place] [facility] (Saudi Arabian), General Discharge Instructions - Clinical Impression Clinical Impression: Insect bites and stings, Cellulitis, Hypertension, Medication refill
[2018-11-28 17:22] VITALS: BP 172/103
[2018-11-28 17:31] VITALS: RESP 18
== END 2018-11-28 17:32 | disposition home or self-care (01) ==
LOC: C.ER 15:53
DX: S50.361A Insect bite (nonvenomous) of right elbow, initial encounter (principal); L03.113 Cellulitis of right upper limb; W57.XXXA Bitten or stung by nonvenomous insect and other nonvenomous arthropods, initial encounter; I10 Essential (primary) hypertension; Z76.0 Encounter for issue of repeat prescription